=== PATIENT | female | born 1945 | race Caucasian/White ===

== ENCOUNTER 2018-04-29 14:33 | Inpatient (IN) ==
[2018-04-29] MEDS ORDERED: *HR* FentaNYL (PF) 100 MCG/2 ML VIAL IVP ONE (15:04)
[2018-04-29] MEDS ORDERED: Ondansetron 4 MG/2 ML VIAL IVP ONE ×2 (15:04→22:09)
[2018-04-29 15:09] LABS: Basophils % 0.2 %; Eosinophils % 0.1 %; Hematocrit 38.8 % (35.3-44.9); Hemoglobin 13.1 g/dL (11.5-15.4); Immature Granulocytes % 0.3 % (0-4); Lymphocytes # 1.2 K/mcL (0.6-4.6); Lymphocytes % 9.6 %; Mean Corpuscular HGB Conc 33.8 g/dL (31.6-35.5); Mean Corpuscular Hemoglobin 30.3 pg (28.0-33.3); Mean Corpuscular Volume 89.8 fL (83.0-100.0); Mean Platelet Volume 9.9 fL (9.4-12.4); Monocytes # 1.2 K/mcL (0.0-1.3); Neutrophils # 9.6 K/mcL (1.6-8.9); Platelet Count 158 K/mcL (140-400); Red Blood Count 4.32 M/mcL (3.82-4.97); Red Cell Distribution Width 13.7 % (11.5-14.5); Segmented Neutrophils % 79.8 %
[2018-04-29 15:28] LABS: Alanine Aminotransferase 16 Units/L (7-52); Albumin 3.6 g/dL (3.5-5.7); Alkaline Phosphatase 74 Units/L (34-104); Aspartate Amino Transferase 24 Units/L (13-39); BUN/Creatinine Ratio 17 (6-26); Bilirubin,Direct 0.8 mg/dL (0.0-0.2); Bilirubin,Indirect 1.5 mg/dL (0.0-1.2); Bilirubin,Total 2.3 mg/dL (0.3-1.0); Blood Urea Nitrogen 16 mg/dL (8-23); Calcium 9.4 mg/dL (8.6-10.3); Carbon Dioxide 27 mEq/L (23-29); Chloride 98 mEq/L (98-107); Globulin 3.6 g/dL (2.4-3.5); Glucose 115 mg/dL (70-105); Lipase 15 Units/L (11-82); Osmolality,Calculated 278 (280-300); Potassium 3.5 mEq/L (3.5-5.1); Sodium 133 mEq/L (136-145); Total Protein 7.2 g/dL (6.4-8.9); eGFR For African Americans > 60 (> 60); eGFR For Non-African Americans 60 (> 60)
--- NOTE | 2018-04-29 17:00 | Emergency Department Note ---
Disposition Clinical Impression: Right upper quadrant abdominal pain Cholelithiasis Qualifiers: Cholelithiasis location: gallbladder Cholecystitis acuity: acute Disposition: Admitted As Inpatient Condition: Good Referrals: Pablito Interiano MD [Primary Care Provider] - Time of Disposition: 17:01 Abdominal Pain HPI - General Chief Complaint: ED Abdominal Pain Stated Complaint: abd pain Time Seen by Provider: 04/29/18 14:39 Source: patient Mode of arrival: ambulatory Limitations: no limitations Nursing Notes Reviewed: Yes Vital Signs Reviewed: Yes - History of Present Illness HPI Narrative: 73-year-old female presents emergency room for right upper quadrant abdominal pain. Onset a few days ago. Was seen at an outlying emergency room over the weekend and had a CT scan done that showed concerns for gallstones. Pain got worse today. She came to our ER for evaluation. denies any fevers. States she has no appetite. Pain is isolated to the right upper quadrant. Pain Scale: 6 - Related Data Home Medications Medication Instructions Recorded Confirmed Albuterol Sulfate [Albuterol 2 puff IH Q4HR PRN 05/03/17 04/27/18 Inhaler] Budesonide/Formoterol 160/4.5 2 puff IH BIDR 05/03/17 04/27/18 [Symbicort 160/4.5] Buspirone HCl [Buspar] 15 mg PO BID 05/03/17 04/27/18 Calcium Carbonate/Vitamin D3 1 each PO DAILY 05/03/17 04/27/18 [Calcium 500 mg Chewable Tablet] Cholecalciferol (Vitamin D3) 5,000 unit PO DAILY 05/03/17 04/27/18 [Vitamin D] Losartan/Hydrochlorothiazide 1 each PO DAILY 05/03/17 04/27/18 [Hyzaar 100-25 Tablet] Omeprazole [PriLOSEC] 20 mg PO DAILY 05/03/17 04/27/18 Sertraline [Zoloft] 100 mg PO BID 05/03/17 04/27/18 Previous Rx's Medication Instructions Recorded Oxycodone HCl/Acetaminophen 1 each PO Q4HR 3 Days #15 tablet 04/27/18 [Percocet 5-325 mg Tablet] Allergies Allergy/AdvReac Type Severity Reaction Status Date / Time No Known Allergies Allergy Verified 04/29/18 14:37 Review of Systems: Gen.: No fevers or chills or new weakness Eyes: Denies double vision or any vision changes Ears: Denies any otalgia Pharynx: Denies sore throat CV: Denies chest pain. Denies palpitations Respiratory: Denies any cough or sputum production. No shortness of breath. GI: Positive for nausea and abdominal pain Neuro: Denies any headache. No problems with ambulation. No numbness. Skin: Denies any rashes or abrasions Psych: Denies any depression or suicidal or homicidal ideation Musculoskeletal: Denies any arthralgias or myalgias Abdominal Pain PMH - Past Medical History Medical history: Reports: asthma, coronary artery disease, hypertension Female Surgical History: Reports: appendectomy, hysterectomy Psychiatric history: Reports: anxiety, depression, panic disorder - Social History Smoking status: Former smoker Alcohol use: Reports: none Drug use: Reports: none Physical Exam - General Limitations: no limitations General appearance: alert - Head Head exam: atraumatic, normocephalic - Eye Eye exam: Present: normal appearance - Chest Chest inspection: Present: normal inspection, symmetric chest wall rise - Respiratory Respiratory exam: Present: normal lung sounds bilaterally - Cardiovascular Cardiovascular exam: Present: regular rate, normal rhythm, normal heart sounds - Abdominal Exam Abdominal exam: Present: tenderness (Tenderness to the right upper quadrant. Positive guarding.), Santos's sign - Extremities Exam Extremities exam: Present: normal inspection - Expanded Lower Extremity Exam Hip/Pelvis exam: Present: normal inspection - Back Exam Back exam: Present: normal inspection - Neurological Exam Neurological exam: Present: alert, oriented X3 - Psychiatric Psychiatric exam: Present: normal affect, normal mood - Skin Skin exam: Present: warm, dry, intact Course Vital Signs Temperature 100.6 F H 04/29/18 14:35 Pulse Rate 81 04/29/18 14:35 Respiratory Rate 18 04/29/18 14:35 Blood Pressure 150/70 04/29/18 14:35 O2 Sat by Pulse Oximetry 90 04/29/18 14:35 Temperature 100.6 F H 04/29/18 14:44 Pulse Rate 73 04/29/18 16:30 Respiratory Rate 18 04/29/18 16:30 Blood Pressure 109/86 04/29/18 16:30 O2 Sat by Pulse Oximetry 90 04/29/18 16:30 Oxygen Delivery Oxygen Delivery Room Air Abdominal Pain - Medical Records Medical records reviewed: Yes I reviewed the patient's medical records. - Lab Data Lab results reviewed: Yes I reviewed the patient's lab results. Result diagrams: 04/29/18 14:44 04/29/18 14:44 Lab Results 04/29/18 04/29/18 Range/Units 14:44 14:44 WBC 12.0 H D (4.3-11.1) K/mcL RBC 4.32 (3.82-4.97) M/mcL Hgb 13.1 (11.5-15.4) g/dL Hct 38.8 (35.3-44.9) % MCV 89.8 (83.0-100.0) fL MCH 30.3 (28.0-33.3) pg MCHC 33.8 (31.6-35.5) g/dL RDW 13.7 (11.5-14.5) % Plt Count 158 (140-400) K/mcL MPV 9.9 (9.4-12.4) fL Immature Gran % 0.3 (0-4) % Seg Neutrophils % 79.8 % Lymphocytes % 9.6 % Monocytes % 10.0 % Eosinophils % 0.1 % Basophils % 0.2 % Neutrophils # 9.6 H (1.6-8.9) K/mcL Lymphocytes # 1.2 (0.6-4.6) K/mcL Monocytes # 1.2 (0.0-1.3) K/mcL Eosinophils # 0.0 (0.0-0.6) K/mcL Basophils # 0.0 (0.0-0.2) K/mcL Sodium 133 L (136-145) mEq/L Potassium 3.5 (3.5-5.1) mEq/L Chloride 98 (98-107) mEq/L Carbon Dioxide 27 (23-29) mEq/L BUN 16 (8-23) mg/dL Creatinine 0.92 (0.60-1.20) mg/dL Est GFR ( Amer) > 60 (> 60) Est GFR (Non-Af Amer) 60 (> 60) BUN/Creatinine Ratio 17 (6-26) Glucose 115 H (70-105) mg/dL Calculated Osmolality 278 L (280-300) Calcium 9.4 (8.6-10.3) mg/dL Total Bilirubin 2.3 H (0.3-1.0) mg/dL Direct Bilirubin 0.8 H (0.0-0.2) mg/dL Indirect Bilirubin 1.5 H (0.0-1.2) mg/dL AST 24 (13-39) Units/L ALT 16 (7-52) Units/L Alkaline Phosphatase 74 (34-104) Units/L Serum Total Protein 7.2 (6.4-8.9) g/dL Albumin 3.6 (3.5-5.7) g/dL Globulin 3.6 H (2.4-3.5) g/dL Albumin/Globulin Ratio 1.0 L (1.1-2.2) Lipase 15 (11-82) Units/L - Radiology Data Radiology results reviewed: Yes I reviewed the patient's radiology results.
[2018-04-29] MEDS ORDERED: cefOXitin 2,000 MG in Water for inj. (sterile) 20 ML 20 ML IVP ONE (17:03)
--- NOTE | 2018-04-29 17:09 | General Surg History&Physical ---
<Joseph Ngo R - Last Filed: 04/29/18 17:04> Date of Encounter: 04/29/18 Time of Encounter: 17:04 Assessment and Plan (1) Acute cholecystitis Current Visit: Yes Status: Acute The assessment and plan as outlined above was discussed with the patient and/or family members who expressed understanding and agreement. All questions were answered. Imaging with cholelithiasis Labs show mild leukocytosis. Fever of 100.6. Worsening pain. PLAN: NPO Pain and nausea control Mefoxin 2 g IV Proceed with laparoscopic cholecystectomy - risks and benefits discussed, signed consent completed History of Present Illness Chief complaint: Abdominal Pain HPI: Ms. Chun is a 73 year old female with PMH of HTN and COPD (no home O2), PSH of hysterectomy and appendectomy, presented to [facility] with RUQ pain radiating to her back that began a few days ago. Recent CT showed gallstones. Pain is worsening today. Denies having an appetite. Denies fevers, N/V, or changes in bowels. RUQ ultrasound shows wall thickening, positive sonographic Santos's, gallbladder sludge, and mild distention. Report mentions a CT with possible stone in gallbladder neck. Past Med Surg Social Fam HX - Past Medical History Medical history: asthma, coronary artery disease, hypertension Psychiatric history: anxiety, depression, panic disorder - Past Surgical History Surgical History: appendectomy, hysterectomy - Social History Smoking Status: Former smoker Smokeless Tobacco Status: No Alcohol use: none Drug use: none Medications and Allergies Albuterol Sulfate [Albuterol Inhaler] 2 puff IH Q4HR PRN 05/03/17 [History] Budesonide/Formoterol 160/4.5 [Symbicort 160/4.5] 2 puff IH BIDR 05/03/17 [ History] Buspirone HCl [Buspar] 15 mg PO BID 05/03/17 [History] Calcium Carbonate/Vitamin D3 [Calcium 500 mg Chewable Tablet] 1 each PO DAILY [History] Cholecalciferol (Vitamin D3) [Vitamin D] 5,000 unit PO DAILY 05/03/17 [History] Losartan/Hydrochlorothiazide [Hyzaar 100-25 Tablet] 1 each PO DAILY 05/03/17 [ History] Omeprazole [PriLOSEC] 20 mg PO DAILY 05/03/17 [History] Sertraline [Zoloft] 100 mg PO BID 05/03/17 [History] Oxycodone HCl/Acetaminophen [Percocet 5-325 mg Tablet] 1 each PO Q4HR 3 Days # 15 tablet 04/27/18 [Rx] Indomethacin [Indomethacin] 75 mg PO DAILY 04/29/18 [History] Tiotropium [Spiriva] 1 puff IH DAILY 04/29/18 [History] 3 Allergy/AdvReac Type Severity Reaction Status Date / Time No Known Allergies Allergy Verified 04/29/18 14:37 Review of Systems All systems PM: reviewed and no additional remarkable complaints except as stated All systems PM: The remainder of the systems were reviewed and are negative General Surgery Exam Initial Vital Signs Temp Pulse Resp BP Pulse Ox 100.6 F H 81 18 150/70 90 04/29/18 14:35 04/29/18 14:35 04/29/18 14:35 04/29/18 14:35 04/29/18 14:35 - General physical appearance well developed, well nourished, moderate distress - Respiratory normal expansion, normal respiratory effort, clear to auscultation - Cardiovascular Cardiovascular exam: Present: RRR, no murmurs/rubs/gallops - Abdomen Abdomen general surgery: Present: tender (RUQ, positive Santos's sign), guarding - Integumentary Integumentary general surgery: Present: warm and dry, no abnormal pigmentation - Neurologic Present: CN 2-12 grossly intact, normal coordination - Psychiatric Psychiatric general surgery: Present: A&Ox3, appropriate, speech is normal, memory intact Results - Labs 04/29/18 14:44 04/29/18 14:44 Abnormal lab results WBC 12.0 K/mcL (4.3-11.1) H D 04/29/18 14:44 Neutrophils # 9.6 K/mcL (1.6-8.9) H 04/29/18 14:44 Sodium 133 mEq/L (136-145) L 04/29/18 14:44 Glucose 115 mg/dL (70-105) H 04/29/18 14:44 Calculated Osmolality 278 (280-300) L 04/29/18 14:44 Total Bilirubin 2.3 mg/dL (0.3-1.0) H 04/29/18 14:44 Direct Bilirubin 0.8 mg/dL (0.0-0.2) H 04/29/18 14:44 Indirect Bilirubin 1.5 mg/dL (0.0-1.2) H 04/29/18 14:44 Globulin 3.6 g/dL (2.4-3.5) H 04/29/18 14:44 Albumin/Globulin Ratio 1.0 (1.1-2.2) L 04/29/18 14:44 Diabetes panel 04/29/18 Range/Units 14:44 Sodium 133 L (136-145) mEq/L Potassium 3.5 (3.5-5.1) mEq/L Chloride 98 (98-107) mEq/L Carbon Dioxide 27 (23-29) mEq/L BUN 16 (8-23) mg/dL Creatinine 0.92 (0.60-1.20) mg/dL Glucose 115 H (70-105) mg/dL Calcium 9.4 (8.6-10.3) mg/dL AST 24 (13-39) Units/L ALT 16 (7-52) Units/L Alkaline Phosphatase 74 (34-104) Units/L Albumin 3.6 (3.5-5.7) g/dL Calcium panel 04/29/18 Range/Units 14:44 Calcium 9.4 (8.6-10.3) mg/dL Albumin 3.6 (3.5-5.7) g/dL Pituitary panel 04/29/18 Range/Units 14:44 Sodium 133 L (136-145) mEq/L Potassium 3.5 (3.5-5.1) mEq/L Chloride 98 (98-107) mEq/L Carbon Dioxide 27 (23-29) mEq/L BUN 16 (8-23) mg/dL Creatinine 0.92 (0.60-1.20) mg/dL Glucose 115 H (70-105) mg/dL Calcium 9.4 (8.6-10.3) mg/dL Adrenal panel 04/29/18 Range/Units 14:44 Sodium 133 L (136-145) mEq/L Potassium 3.5 (3.5-5.1) mEq/L Chloride 98 (98-107) mEq/L Carbon Dioxide 27 (23-29) mEq/L BUN 16 (8-23) mg/dL Creatinine 0.92 (0.60-1.20) mg/dL Glucose 115 H (70-105) mg/dL Calcium 9.4 (8.6-10.3) mg/dL Total Bilirubin 2.3 H (0.3-1.0) mg/dL AST 24 (13-39) Units/L ALT 16 (7-52) Units/L Alkaline Phosphatase 74 (34-104) Units/L Albumin 3.6 (3.5-5.7) g/dL All other labs normal. <Makayla,Jordan T - Last Filed: 04/29/18 20:19> Date of Encounter: 04/29/18 History of Present Illness HPI: Ms. Chun is a 73 year old female Review of Systems All systems PM: The remainder of the systems were reviewed and are negative General Surgery Exam Initial Vital Signs Temp Pulse Resp BP Pulse Ox 100.6 F H 81 18 150/70 90 04/29/18 14:35 04/29/18 14:35 04/29/18 14:35 04/29/18 14:35 04/29/18 14:35 Results - Labs 04/29/18 14:44 04/29/18 14:44 Abnormal lab results WBC 12.0 K/mcL (4.3-11.1) H D 04/29/18 14:44 Neutrophils # 9.6 K/mcL (1.6-8.9) H 04/29/18 14:44 Sodium 133 mEq/L (136-145) L 04/29/18 14:44 Glucose 115 mg/dL (70-105) H 04/29/18 14:44 Calculated Osmolality 278 (280-300) L 04/29/18 14:44 Total Bilirubin 2.3 mg/dL (0.3-1.0) H 04/29/18 14:44 Direct Bilirubin 0.8 mg/dL (0.0-0.2) H 04/29/18 14:44 Indirect Bilirubin 1.5 mg/dL (0.0-1.2) H 04/29/18 14:44 Globulin 3.6 g/dL (2.4-3.5) H 04/29/18 14:44 Albumin/Globulin Ratio 1.0 (1.1-2.2) L 04/29/18 14:44 All other labs normal. - Attending Attestation I examined this patient and my medical decision-making was reviewed with the Resident Physician. I agree with the documented findings, disposition and treatment plan as described except to the extent set forth below. The patient is seen and evaluated in the emergency room with resident. Radiologic findings and physical examination suggestive obstructed gallbladder with recalcitrant biliary colic. I recommended urgent laparoscopic cholecystectomy and cholangiogram. The patient is in agreement and we will proceed later this evening with cholecystectomy Jordan Benavides MD FACS
[2018-04-29] MEDS ORDERED: Acetaminophen IV 1,000 MG/100 ML INFUS..BTL IVPB PRN (18:45)
[2018-04-29] MEDS ORDERED: Ondansetron 4 MG/2 ML VIAL IVP PRN ×2 (18:47→23:58)
[2018-04-29] MEDS ORDERED: OXYCODONE Oral CONC 10 MG/0.5 ML ORAL.SYG SL PRN ×2 (18:48→23:58)
--- NOTE | 2018-04-29 18:58 | Anesthesia Evaluation PreOp ---
Date of Encounter: 04/29/18 Time of Encounter: 18:55 - Past History Planned Operation: Lap Marie. Cardiac History: HTN, Other (CAD) Pulmonary History: Asthma, COPD, Other (Anxiety/ Depression) WHOLESALER History: Denies Any Significant HX Other Medical History: Denies Any Significant HX Anesthesia History: No Prior Anesthetic Complications, Past Anesthesia ( appendectomy, hysterectomy) : No Alcohol Use: none Drug use: none Medications and Allergies Albuterol Sulfate [Albuterol Inhaler] 2 puff IH Q4HR PRN 05/03/17 [History] Budesonide/Formoterol 160/4.5 [Symbicort 160/4.5] 2 puff IH BIDR 05/03/17 [ History] Buspirone HCl [Buspar] 15 mg PO BID 05/03/17 [History] Calcium Carbonate/Vitamin D3 [Calcium 500 mg Chewable Tablet] 1 each PO DAILY [History] Cholecalciferol (Vitamin D3) [Vitamin D] 5,000 unit PO DAILY 05/03/17 [History] Losartan/Hydrochlorothiazide [Hyzaar 100-25 Tablet] 1 each PO DAILY 05/03/17 [ History] Omeprazole [PriLOSEC] 20 mg PO DAILY 05/03/17 [History] Sertraline [Zoloft] 100 mg PO BID 05/03/17 [History] Oxycodone HCl/Acetaminophen [Percocet 5-325 mg Tablet] 1 each PO Q4HR 3 Days # 15 tablet 04/27/18 [Rx] Indomethacin [Indomethacin] 75 mg PO DAILY 04/29/18 [History] Tiotropium [Spiriva] 1 puff IH DAILY 04/29/18 [History] 3 Allergy/AdvReac Type Severity Reaction Status Date / Time No Known Allergies Allergy Verified 04/29/18 14:37 - Meds/Allergy Pre-op Review Medications Reviewed: Yes Allergies Reviewed: Yes Beta Blockers on Current Med List: No Anesthesia Results - Labs 04/29/18 14:44 04/29/18 14:44 - Imaging EKG: report reviewed (SINUS RHYTHM WITH FIRST DEGREE AV BLOCK) Anesthesia Exam O2 Sat Height 1.7 m Height 1.7 m Height 1.7 m Weight 132.721 kg Weight 132.449 kg Weight 132.449 kg O2 Sat by Pulse Oximetry 98 O2 Sat by Pulse Oximetry 90 O2 Sat by Pulse Oximetry 90 O2 Sat by Pulse Oximetry 90 O2 Sat by Pulse Oximetry 90 Vital Signs Temp Pulse Resp BP Pulse Ox 100.6 F H 81 18 150/70 90 04/29/18 14:35 04/29/18 14:35 04/29/18 14:35 04/29/18 14:35 04/29/18 14:35 Vital Signs/O2 Sat, Most Current Temp Pulse Resp BP Pulse Ox 102.0 F H 77 15 145/71 98 04/29/18 17:41 04/29/18 17:41 04/29/18 17:41 04/29/18 17:41 04/29/18 17:41 NPO (# of Hours): > 8 hrs Pain Scale: 0 Pain Scale Used: Numeric (1 - 10) - HEENT Pupil (Motor): Pupils equal, EOMI Mallampati: III Teeth: Edentulous Oral Opening: Greater than 3 - WHOLESALER LOC: Oriented WHOLESALER Motor: Normal RUE, Normal LUE, Normal RLE, Normal LLE, Normal Face WHOLESALER Sensory: Normal: RUE, LUE, RLE, LLE, Face - Cardiac Rhythm: Regular Murmur: None JVD: No Carotid Bruit: No - Pulmonary Breath Sounds: bilateral Clear Respiratory Effort: Symmetrical Anesthesia Assess/Plan ASA Score: 3 Modified Keyes Scale for Level of Consciousness: Cooperative, oriented, and tranquil Anesthetic Plan: General Autologous Blood: Yes Monitoring Plan: Standard Monitors Recovery Plan: PACU
[2018-04-29] MEDS ORDERED: *HR* FentaNYL (PF) 100 MCG/2 ML VIAL ONE (19:19)
[2018-04-29] MEDS ORDERED: *HR* Midazolam HCl 2 MG/2 ML VIAL ONE (19:19)
[2018-04-29] MEDS ORDERED: *HR* Propofol 200 MG/20 ML VIAL IVP ONE (19:20)
[2018-04-29] MEDS ORDERED: Lidocaine -MPF 2% 2 ML VIAL ONE (19:22)
[2018-04-29] MEDS ORDERED: *HR* Succinylcholine 200 MG/10 ML VIAL IVP ONE (19:22)
[2018-04-29] MEDS ORDERED: Dexamethasone 4 MG/ML VIAL ONE (19:22)
[2018-04-29] MEDS ORDERED: *HR* Rocuronium Bromide 50 MG/5 ML VIAL ONE (19:22)
[2018-04-29] MEDS ORDERED: CefOXitin 1,000 MG VIAL ONE (19:24)
[2018-04-29] MEDS ORDERED: CefOXitin 2,000 MG VIAL ONE ×2 (19:42→21:33)
[2018-04-29] MEDS ORDERED: Neostigmine Methylsulfate 3 MG/3 ML SYRINGE ONE (19:59)
[2018-04-29] MEDS ORDERED: Naloxone 0.4 MG/ML INJ ONE (20:18)
[2018-04-29] MEDS ORDERED: Isovue-300 50 ML VIAL IVP ONE (20:28)
[2018-04-29] MEDS ORDERED: Albuterol 2.5 MG/3 ML NEBULIZER IH ONE (22:09)
[2018-04-29] MEDS ORDERED: *HR* Promethazine 25 MG/ML VIAL IVP PRN (22:09)
[2018-04-29] MEDS ORDERED: *HR* Labetalol 20 MG/4 ML SYRINGE IVP PRN (22:09)
[2018-04-29] MEDS ORDERED: *HR* HYDROmorphone (PF) 1 MG/ML SYRINGE IVP PRN (22:09)
--- NOTE | 2018-04-29 22:23 | Operative Note ---
Date of procedure: 04/29/18 Pre-op diagnosis: Acute cholecystitis Post-op diagnosis: same Procedure: Laparoscopic cholecystectomy, cholangiogram +30% (morbid obesity and acute cholecystitis) Anesthesia: SEYMOUR Surgeon: Jordan Benavides Was there an assistant community director present: Yes Building Tech: Marta Donovan Estimated blood loss (cc): 100 Specimen: Gallbladder and contents Condition: stable Disposition: PACU Procedure in Detail: Laparoscopic cholecystectomy and intraoperative cholangiogram (+30% for profound morbid obesity and acute cholecystitis) Operative procedure after informed consent and appropriate patient identification and timeout the patient was taken to the major operating suite and placed supine position given adequate general endotracheal anesthesia the abdomen is prepped and draped in sterile fashion utilizing ChloraPrep standard draping techniques timeout was taken patient is identified. I made a vertical midline incision below the umbilicus dissected down to level of fascia there are 2 traction stitches placed in the abdominal cavity was entered visually. A Garcia trocar was placed in the abdomen and the abdomen was insufflated to 15 mmHg pressure CO2 the gallbladder was visualized. The gallbladder was acutely inflamed and completely obstructed. I placed an 11 port in the subxiphoid area and 2 5 mm ports in the subcostal area. The gallbladder was decompressed with decompression needle. The gallbladder was grasped and elevated. A variety of blunt and sharp dissection techniques were used to isolate the cystic duct and cystic artery. The cystic artery was encountered first and divided prior to the cystic duct. The cystic artery was controlled with 2 surgical clips proximally and one distally and it was divided I placed a surgical clip on the neck the gallbladder and obtained an intraoperative cholangiogram using 10 mL of Isovue. Intraoperative cholangiogram was normal. The cholangiocatheter was removed and the cystic duct was controlled with 2 surgical clips proximally and was divided the gallbladder was removed from the gallbladder fossae using electrocautery. Dissection was very difficult and total blood loss was approximately 100 mL. At the end of the procedure I was able to completely control bleeding from the gallbladder fossa with electrocautery. The gallbladder was removed through the #11 port site using a specimen bag. I replaced the #11 port and irrigated with copious amounts of antibiotic containing solution. There is no evidence of bleeding or bile leak. All trochars were removed. Fascia was closed with 0 Vicryl skin with 20 and 4 -0 Vicryl he tolerated the procedure well and was transferred to recovery in stable condition
[2018-04-29] MEDS ORDERED: Acetaminophen IV 1,000 MG/100 ML INFUS..BTL IVPB ONE (23:09)
[2018-04-29] MEDS ORDERED: Acetaminophen IV 1,000 MG/100 ML INFUS..BTL ONE (23:10)
[2018-04-29] MEDS ORDERED: *HR* Metoprolol 5 MG/5 ML VIAL IVP PRN (23:58)
[2018-04-30] MEDS ORDERED: cefOXitin 2,000 MG in Water for inj. (sterile) 20 ML 20 ML IVPB SCH
[2018-04-30] MEDS: 0.9 % Sodium Chloride 1,000 ML IVC SCH ×2 (00:57→17:19)
[2018-04-30] MEDS: cefOXitin 2,000 MG in Water for inj. (sterile) 20 ML 20 ML IVPB SCH ×3 (04:50→21:37)
[2018-04-30] MEDS: *HR* OxyCODONE/APAP 5/325 TABLET PO PRN ×2 (05:07→11:44)
[2018-04-30 06:45] LABS: Basophils % 0.1 %; Hematocrit 39.7 % (35.3-44.9); Hemoglobin 13.1 g/dL (11.5-15.4); Immature Granulocytes % 0.5 % (0-4); Lymphocytes # 0.7 K/mcL (0.6-4.6); Lymphocytes % 6.6 %; Mean Corpuscular Hemoglobin 29.8 pg (28.0-33.3); Mean Corpuscular Volume 90.4 fL (83.0-100.0); Mean Platelet Volume 10.4 fL (9.4-12.4); Monocytes # 0.9 K/mcL (0.0-1.3); Monocytes % 8.8 %; Neutrophils # 8.6 K/mcL (1.6-8.9); Platelet Count 150 K/mcL (140-400); Red Blood Count 4.39 M/mcL (3.82-4.97); Red Cell Distribution Width 13.7 % (11.5-14.5)
[2018-04-30 07:05] LABS: BUN/Creatinine Ratio 17 (6-26); Blood Urea Nitrogen 17 mg/dL (8-23); Calcium 9.1 mg/dL (8.6-10.3); Carbon Dioxide 26 mEq/L (23-29); Chloride 100 mEq/L (98-107); Glucose 123 mg/dL (70-105); Osmolality,Calculated 285 (280-300); Potassium 3.8 mEq/L (3.5-5.1); Sodium 136 mEq/L (136-145); eGFR For African Americans > 60 (> 60); eGFR For Non-African Americans 56 (> 60)
--- NOTE | 2018-04-30 09:09 | Neurology - Consult Note ---
<Eliseo David - Last Filed: 04/30/18 13:27> Date of Encounter: 04/30/18 Time of Encounter: 10:30 Assessment and Plan (1) Mild cognitive impairment with memory loss Current Visit: Yes Status: Acute Patient having difficulty answering questions, patient gets distracted having difficulty with congition and orientation. Likely a combination of factors: probable Underlying cognitive impairment exacerbated by her acute medical issues. CT head showed: "No acute intracranial abnormality. Chronic white matter microangiopathic ischemic changes and age-related cerebral atrophy." Recommendation: Check TSH, B12, Folate, UA to rule out medical causes of altered mental status. Follow up as an outpatient for full neuropsych testing evaluation for Mild cognitive impairment. History of Present Illness HPI: Ms. Chun is a 73 year old female Past Med Surg Social Fam HX - Past Medical History Medical history: asthma, coronary artery disease, hypertension Psychiatric history: anxiety, depression, panic disorder - Past Surgical History Surgical History: appendectomy, hysterectomy - Social History Smoking Status: Former smoker Smokeless Tobacco Status: No Alcohol use: none Drug use: none Medications and Allergies Albuterol Sulfate [Albuterol Inhaler] 2 puff IH Q4HR PRN 05/03/17 [History] Budesonide/Formoterol 160/4.5 [Symbicort 160/4.5] 2 puff IH BIDR 05/03/17 [ History] Buspirone HCl [Buspar] 15 mg PO BID 05/03/17 [History] Calcium Carbonate/Vitamin D3 [Calcium 500 mg Chewable Tablet] 1 each PO DAILY [History] Cholecalciferol (Vitamin D3) [Vitamin D] 5,000 unit PO DAILY 05/03/17 [History] Losartan/Hydrochlorothiazide [Hyzaar 100-25 Tablet] 1 each PO DAILY 05/03/17 [ History] Omeprazole [PriLOSEC] 20 mg PO DAILY 05/03/17 [History] Sertraline [Zoloft] 100 mg PO BID 05/03/17 [History] Oxycodone HCl/Acetaminophen [Percocet 5-325 mg Tablet] 1 each PO Q4HR 3 Days # 15 tablet 04/27/18 [Rx] Indomethacin [Indomethacin] 75 mg PO DAILY 04/29/18 [History] Tiotropium [Spiriva] 1 puff IH DAILY 04/29/18 [History] 3 Allergy/AdvReac Type Severity Reaction Status Date / Time No Known Allergies Allergy Verified 04/29/18 14:37 All Systems: The remainder of the systems were reviewed and are negative Physical Examination - Vital Signs Vital Signs: Initial Vital Signs Temp Pulse Resp BP Pulse Ox 100.6 F H 81 18 150/70 90 04/29/18 14:35 04/29/18 14:35 04/29/18 14:35 04/29/18 14:35 04/29/18 14:35 - Constitutional General appearance: comfortable - Neurologic Sensorimotor examination: intact Motor examination - right side: 03/16: deltoids, biceps, triceps, wrist flexion, wrist extension, 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, hip flexors, tibialis Anterior, toe extension (EHL), plantarflexion Motor examination - left side: 03/16: deltoids, biceps, triceps, wrist flexion, wrist extension, hip flexors, 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 I said that I had asked her what year it was and she answered 2017 then changed to 2018. When I asked her the month she correctly stated April because my birthday is in April. She was able to tell me her birthday immediately. When asked the Date she paused for a while and then stated she did not know because she didn't have a calander with her. I indicated the date was posted on the board opposite her and asked her to read it. She read sunday as but then corrected herself, but didn't finish readign the month, date, and year also listed. She took a long time to answer where we were but eventually stated she was in the hospital. She is able to spell the word world forwards, but not backwards, she was unable to tell me how much money 5 quarters added up to, She was able to tell me her 's name and the date she got , but not the year. ), lucid, follows simple commands (sometimes requires prompting. Patient will often struggle with questions/commands appear to spend lots of time thinking about it but then et lost in thoguth and forget what we were talking about or what I asked her to do. Often when I asked her a question she would say mhmm even though that was not an appropriate answer to my question.), cognitive impairment, not reliable historian Cranial nerve examination: PERRL, EOMI, visual kelsey intact, sensory to face intact, no facial asymmetry is present, no dysarthria, hearing is intact symmetrically, soft palate elevates bilaterally upon phonation, flexes SCM and trapezius muscles symmetrically with full power, tongue protrudes midline, no atrophy or facial fasiculations present Cerebellar examination: no dysmetria, performs finger to nose and heel to berry symmetrically without ataxia Results - Laboratory Findings CBC and BMP: 04/30/18 05:26 04/30/18 05:26 Abnormal lab findings: Abnormal lab results Est GFR (Non-Af Amer) 56 (> 60) L 04/30/18 05:26 Glucose 123 mg/dL (70-105) H 04/30/18 05:26 Total Bilirubin 2.3 mg/dL (0.3-1.0) H 04/29/18 14:44 Direct Bilirubin 0.8 mg/dL (0.0-0.2) H 04/29/18 14:44 Indirect Bilirubin 1.5 mg/dL (0.0-1.2) H 04/29/18 14:44 Globulin 3.6 g/dL (2.4-3.5) H 04/29/18 14:44 Albumin/Globulin Ratio 1.0 (1.1-2.2) L 04/29/18 14:44 Consult Discharge Plan - Plan Referrals: Pablito Interiano MD [Primary Care Provider] - <Estella Espino I - Last Filed: 04/30/18 15:27> Date of Encounter: 04/30/18 Assessment and Plan (1) Mild cognitive impairment with memory loss Current Visit: Yes Status: Acute Pt was seen and examined, my medical decision was reviewed with the Resident Physician, I agree with the documented findings, disposition and treatment plas as described except to the extent set forth below Patient seemed to be having some difficulty with orientation and cognition though no significant focal motor deficit noted on examination CT also did not shows any acute abnormality. Suggest to check for any underlying metabolic or infectious etiologies that may be causing or contributing to her symptoms. Patient may have underlying mild cognitive impairment likely exacerbated by the acute condition. If no sign of infection or any other metabolic abnormalities she could be evaluated later on as an outpatient for evaluation of the dementia. In the meantime continue to treat underlying condition which she is been admitted for. Estella Espino MD History of Present Illness HPI: Ms. Chun is a 73 year old female All Systems: The remainder of the systems were reviewed and are negative Physical Examination - Vital Signs Vital Signs: Initial Vital Signs Temp Pulse Resp BP Pulse Ox 100.6 F H 81 18 150/70 90 04/29/18 14:35 04/29/18 14:35 04/29/18 14:35 04/29/18 14:35 04/29/18 14:35 Results - Laboratory Findings CBC and BMP: 04/30/18 05:26 04/30/18 05:26 Abnormal lab findings: Abnormal lab results Est GFR (Non-Af Amer) 56 (> 60) L 04/30/18 05:26 Glucose 123 mg/dL (70-105) H 04/30/18 05:26 Total Bilirubin 2.3 mg/dL (0.3-1.0) H 04/29/18 14:44 Direct Bilirubin 0.8 mg/dL (0.0-0.2) H 04/29/18 14:44 Indirect Bilirubin 1.5 mg/dL (0.0-1.2) H 04/29/18 14:44 Globulin 3.6 g/dL (2.4-3.5) H 04/29/18 14:44 Albumin/Globulin Ratio 1.0 (1.1-2.2) L 04/29/18 14:44
[2018-04-30] MEDS: Losartan/HCTZ 50-12.5 TABLET PO SCH (09:15)
--- NOTE | 2018-04-30 11:24 | General Surgery Progress Note ---
<Joseph Ngo R - Last Filed: 04/30/18 16:34> Date of Encounter: 04/30/18 Time of Encounter: 07:00 - Assessment and Plan (1) Acute cholecystitis Current Visit: Yes Status: Acute POD #[address] Dr[address] Benavides No longer febrile. Leukocytosis is resolved now. PLAN: Clear liquid diet Pain and nausea control Continue antibiotics Consult neurology for suspected delirium (2) Disorientation Current Visit: Yes Status: Acute Possibly acute delirium related to infection, unsure of baseline mental status at this point CT head: no acute abnormality, chronic white matter microangiopathic ischemic changes and age-related cerebral atrophy Consult Neurology - appreciate recommendations - will check TSH, B12, folate, and UA (3) Hypertension Current Visit: Yes Status: Acute Normotensive. Continue home meds Qualifiers: Hypertension type: essential hypertension Qualified Code(s): I10 - Essential (primary) hypertension (4) Depression Current Visit: Yes Status: Acute Continue home meds Qualifiers: Depression Type: unspecified Qualified Code(s): F32.9 - Major depressive disorder, single episode, unspecified (5) COPD (chronic obstructive pulmonary disease) Current Visit: Yes Status: Acute Albuterol PRN Qualifiers: COPD type: unspecified COPD Qualified Code(s): J44.9 - Chronic obstructive pulmonary disease, unspecified (6) DVT prophylaxis Current Visit: Yes Status: Acute SCDs and heparin BID Subjective Narrative: Pt is confused this morning. States the year is 1999, but knows the president correctly. She reports being in some mild pain, but this is improving. Denies fevers, chills, N/V. No BM yet, but is passing gas. Objective Vital Signs - Last 8 Hours Temp Pulse Resp BP Pulse Ox 04/30/18 11:03 99.0 F 90 18 126/69 93 04/30/18 09:21 92 04/30/18 07:38 97.6 F 66 18 104/61 95 04/30/18 05:22 99.1 F 65 16 113/70 94 Intake and Output 04/29/18 04/30/18 04/30/18 23:59 07:59 15:59 Intake Total 100 / 100 480 / 480 Output Total 100 / 100 750 / 750 400 / 400 Balance -100 / -100 -650 / -650 80 / 80 Intake: IV Fluids 100 / 100 Ofirmev 1,000 mg/100 ml 1,000 100 / 100 mg In 100 ml @ 400 mls/hr IVPB ONCE ONE Rx#:[id number] Oral 0 / 0 480 / 480 Output: Urine 750 / 750 400 / 400 Estimated Blood Loss 100 / 100 Other: Meal Clears # Bowel Movements 0 Weight 132.721 kg 134.5 kg Blood Glucose* 96 Patient Weight 04/30/18 23:59 Weight 134.5 kg - General physical appearance well developed, well nourished, no distress - Respiratory normal expansion, normal respiratory effort, clear to auscultation - Cardiovascular Cardiovascular exam: Present: RRR, no murmurs/rubs/gallops - Abdomen Abdomen: Present: bowel sounds present, soft, tender (appropriately) - Incision Incision: Present: clean and dry, intact - Integumentary no rash, no growths, no abnormal pigmentation - Neurologic CN 2-12 grossly intact - Psychiatric oriented to person, speech is normal - Labs 04/30/18 05:26 04/30/18 05:26 Diabetes panel 04/30/18 Range/Units 05:26 Sodium 136 (136-145) mEq/L Potassium 3.8 (3.5-5.1) mEq/L Chloride 100 (98-107) mEq/L Carbon Dioxide 26 (23-29) mEq/L BUN 17 (8-23) mg/dL Creatinine 0.98 (0.60-1.20) mg/dL Glucose 123 H (70-105) mg/dL Calcium 9.1 (8.6-10.3) mg/dL Calcium panel 04/30/18 Range/Units 05:26 Calcium 9.1 (8.6-10.3) mg/dL Pituitary panel 04/30/18 Range/Units 05:26 Sodium 136 (136-145) mEq/L Potassium 3.8 (3.5-5.1) mEq/L Chloride 100 (98-107) mEq/L Carbon Dioxide 26 (23-29) mEq/L BUN 17 (8-23) mg/dL Creatinine 0.98 (0.60-1.20) mg/dL Glucose 123 H (70-105) mg/dL Calcium 9.1 (8.6-10.3) mg/dL Adrenal panel 04/30/18 Range/Units 05:26 Sodium 136 (136-145) mEq/L Potassium 3.8 (3.5-5.1) mEq/L Chloride 100 (98-107) mEq/L Carbon Dioxide 26 (23-29) mEq/L BUN 17 (8-23) mg/dL Creatinine 0.98 (0.60-1.20) mg/dL Glucose 123 H (70-105) mg/dL Calcium 9.1 (8.6-10.3) mg/dL - VTE Documentation of Mechanical Device: Intermittent pneumatic compression device Consult Discharge Plan - Plan Referrals: Pablito Interiano MD [Primary Care Provider] - <Jordan Benavides - Last Filed: 05/02/18 09:37> Date of Encounter: 04/30/18 Objective Vital Signs - Last 8 Hours Temp Pulse Resp BP Pulse Ox 05/02/18 06:24 99.6 F 95 18 103/51 95 05/02/18 04:27 16 93 05/02/18 03:47 98.8 F 91 18 105/57 94 Intake and Output 05/01/18 05/02/18 05/02/18 23:59 07:59 15:59 Intake Total 1140 / 1140 80 / 80 Output Total 600 / 600 300 / 300 Balance 540 / 540 -220 / -220 Intake: IV Fluids 1020 / 1020 20 / 20 0.9 % Sodium Chloride 1,000 ML 1000 / 1000 @ 75 mls/hr IVC .[id number] [facility] Rx #:[id number] Mefoxin 2,000 MG In Water for 20 / 20 20 / 20 inj. (sterile) 20 ML @ 300 mls/ hr IVPB Q8H [facility] Rx#:[id number] Oral 120 / 120 60 / 60 Output: Urine 600 / 600 300 / 300 Other: Meal Dinner Percent of Meal Consumed 50% # Bowel Movements 0 Weight 136.2 kg Patient Weight 05/02/18 23:59 Weight 136.2 kg - Labs 05/02/18 05:06 05/02/18 05:06 Diabetes panel 05/02/18 Range/Units 05:06 Sodium 137 (136-145) mEq/L Potassium 3.7 (3.5-5.1) mEq/L Chloride 106 (98-107) mEq/L Carbon Dioxide 26 (23-29) mEq/L BUN 28 H (8-23) mg/dL Creatinine 0.97 (0.60-1.20) mg/dL Glucose 100 (70-105) mg/dL Calcium 8.4 L (8.6-10.3) mg/dL Calcium panel 05/02/18 Range/Units 05:06 Calcium 8.4 L (8.6-10.3) mg/dL Pituitary panel 05/02/18 Range/Units 05:06 Sodium 137 (136-145) mEq/L Potassium 3.7 (3.5-5.1) mEq/L Chloride 106 (98-107) mEq/L Carbon Dioxide 26 (23-29) mEq/L BUN 28 H (8-23) mg/dL Creatinine 0.97 (0.60-1.20) mg/dL Glucose 100 (70-105) mg/dL Calcium 8.4 L (8.6-10.3) mg/dL Adrenal panel 05/02/18 Range/Units 05:06 Sodium 137 (136-145) mEq/L Potassium 3.7 (3.5-5.1) mEq/L Chloride 106 (98-107) mEq/L Carbon Dioxide 26 (23-29) mEq/L BUN 28 H (8-23) mg/dL Creatinine 0.97 (0.60-1.20) mg/dL Glucose 100 (70-105) mg/dL Calcium 8.4 L (8.6-10.3) mg/dL - Attending Attestation I examined this patient and my medical decision-making was reviewed with the Resident Physician. I agree with the documented findings, disposition and treatment plan as described except to the extent set forth below. The patient is seen and evaluated on morning rounds with resident. She has much more disorientation and expected. She is not responding well. This may be acute worsening of baseline dementia. We will plan CAT scan of the head and neurology consultation continue supportive care Jordan Benavides MD FACS
[2018-04-30] MEDS: *HR* Heparin 5,000 UNIT/ML VIAL SQ SCH ×2 (17:19→19:25)
[2018-04-30] MEDS ORDERED: 0.9 % Sodium Chloride 500 ML IVC ONE (20:57)
[2018-04-30] MEDS ORDERED: Acetaminophen 325 MG TABLET PO PRN (20:59)
[2018-05-01] MEDS: cefOXitin 2,000 MG in Water for inj. (sterile) 20 ML 20 ML IVPB SCH ×3 (05:21→20:52)
[2018-05-01] MEDS: *HR* Heparin 5,000 UNIT/ML VIAL SQ SCH ×2 (05:21→16:54)
[2018-05-01 06:29] LABS: Basophils % 0.4 %; Eosinophils # 0.1 K/mcL (0.0-0.6); Eosinophils % 0.9 %; Hematocrit 34.8 % (35.3-44.9); Immature Platelets 3.7 % (1.1-6.1); Lymphocytes # 1.3 K/mcL (0.6-4.6); Lymphocytes % 16.7 %; Mean Corpuscular HGB Conc 31.9 g/dL (31.6-35.5); Mean Corpuscular Hemoglobin 29.4 pg (28.0-33.3); Mean Corpuscular Volume 92.3 fL (83.0-100.0); Mean Platelet Volume 10.2 fL (9.4-12.4); Monocytes # 0.8 K/mcL (0.0-1.3); Monocytes % 9.9 %; Neutrophils # 5.7 K/mcL (1.6-8.9); Platelet Count 156 K/mcL (140-400); Red Blood Count 3.77 M/mcL (3.82-4.97); Red Cell Distribution Width 13.8 % (11.5-14.5); Segmented Neutrophils % 71.1 %
[2018-05-01 06:44] LABS: Hemoglobin 11.1 g/dL (11.5-15.4)
[2018-05-01 06:46] LABS: Calcium 8.5 mg/dL (8.6-10.3); Potassium 3.5 mEq/L (3.5-5.1)
[2018-05-01 06:52] LABS: Thyroid Stimulating Hormone 2.339 mcIU/mL (0.340-5.600)
[2018-05-01 07:03] LABS: Vitamin B12 263 pg/mL (250-1100)
[2018-05-01] MEDS: 0.9 % Sodium Chloride 1,000 ML IVC SCH ×3 (07:05→14:10)
[2018-05-01 07:10] LABS: Folate > 22.3 ng/mL (3.0-16.0)
[2018-05-01] MEDS ORDERED: 0.9 % Sodium Chloride 500 ML IVC ONE ×2 (07:30→14:00)
--- NOTE | 2018-05-01 07:37 | General Surgery Progress Note ---
<Joseph Ngo R - Last Filed: 05/01/18 07:32> Date of Encounter: 05/01/18 Time of Encounter: 07:32 - Assessment and Plan (1) Acute cholecystitis Current Visit: Yes Status: Acute POD #[address] Dr[address] Benavides Still with fever overnight. Leukocytosis is resolved now. PLAN: Clear liquid diet Pain and nausea control Continue antibiotics 500ml bolus x2 today Add douonebs scheduled Blood cultures pending UA pending DVT & GI prophylaxis PT/OT/SW consults (2) Disorientation Current Visit: Yes Status: Acute Possibly acute delirium related to infection, unsure of baseline mental status at this point CT head: no acute abnormality, chronic white matter microangiopathic ischemic changes and age-related cerebral atrophy Consult Neurology - appreciate recommendations - TSH, B12, folate all unremarkable - UA pending (3) Hypertension Current Visit: Yes Status: Acute Normotensive. Continue home meds Qualifiers: Hypertension type: essential hypertension Qualified Code(s): I10 - Essential (primary) hypertension (4) Depression Current Visit: Yes Status: Acute Continue home meds Qualifiers: Depression Type: unspecified Qualified Code(s): F32.9 - Major depressive disorder, single episode, unspecified (5) COPD (chronic obstructive pulmonary disease) Current Visit: Yes Status: Acute Duonebs scheduled Up to chair TID Qualifiers: COPD type: unspecified COPD Qualified Code(s): J44.9 - Chronic obstructive pulmonary disease, unspecified (6) DVT prophylaxis Current Visit: Yes Status: Acute SCDs and heparin BID Subjective Patient reports: still having pain, pain is less, bowel movement Narrative: Pt with fever overnight, blood cultures drawn. She is more oriented this morning and able to respond quicker than yesterday. Still having small amount of urine output. Objective Vital Signs - Last 8 Hours Temp Pulse Resp BP Pulse Ox 05/01/18 06:30 99.7 F H 93 16 122/69 93 05/01/18 04:58 18 93 05/01/18 04:29 99.7 F H 91 18 113/67 92 05/01/18 02:50 99.6 F 93 20 101/61 94 04/30/18 23:46 101.2 F H 85 16 93/56 95 Intake and Output 04/30/18 04/30/18 05/01/18 15:59 23:59 07:59 Intake Total 2100 / 2100 20 20 Output Total 400 / 400 0 / 0 0 / 0 Balance 1700 / 1700 20 Intake: IV Fluids 1020 / 1020 20 0.9 % Sodium Chloride 1,000 ML 1000 / 1000 @ 75 mls/hr IVC .[id number] [facility] Rx #:[id number] Mefoxin 2,000 MG In Water for 20 inj. (sterile) 20 ML @ 300 mls/ hr IVPB Q8H [facility] Rx#:[id number] Oral 1080 / 1080 0 / 0 0 / 0 Output: Urine 400 / 400 0 / 0 0 / 0 Other: Meal clears Percent of Meal Consumed 0% # Urine Diapers 1 # Bowel Movements 0 Weight 134.2 kg Patient Weight 05/01/18 23:59 Weight 134.2 kg - General physical appearance well developed, well nourished, no distress - Respiratory normal expansion wheezing: bilateral - Cardiovascular Cardiovascular exam: Present: RRR - Abdomen Abdomen: Present: bowel sounds present, soft, tender (appropriately) - Incision Incision: Present: clean and dry, intact - Integumentary no rash - Neurologic CN 2-12 grossly intact - Psychiatric oriented to person, oriented to place - Labs 05/01/18 05:58 05/01/18 05:58 Diabetes panel 05/01/18 Range/Units 05:58 Sodium 137 (136-145) mEq/L Potassium 3.5 (3.5-5.1) mEq/L Chloride 104 (98-107) mEq/L Carbon Dioxide 25 (23-29) mEq/L BUN 29 H (8-23) mg/dL Creatinine 1.22 H (0.60-1.20) mg/dL Glucose 97 (70-105) mg/dL Calcium 8.5 L (8.6-10.3) mg/dL Thyroid panel 05/01/18 Range/Units 05:58 TSH 2.339 (0.340-5.600) mcIU/mL Calcium panel 05/01/18 Range/Units 05:58 Calcium 8.5 L (8.6-10.3) mg/dL Pituitary panel 05/01/18 Range/Units 05:58 Sodium 137 (136-145) mEq/L Potassium 3.5 (3.5-5.1) mEq/L Chloride 104 (98-107) mEq/L Carbon Dioxide 25 (23-29) mEq/L BUN 29 H (8-23) mg/dL Creatinine 1.22 H (0.60-1.20) mg/dL Glucose 97 (70-105) mg/dL Calcium 8.5 L (8.6-10.3) mg/dL TSH 2.339 (0.340-5.600) mcIU/mL Adrenal panel 05/01/18 Range/Units 05:58 Sodium 137 (136-145) mEq/L Potassium 3.5 (3.5-5.1) mEq/L Chloride 104 (98-107) mEq/L Carbon Dioxide 25 (23-29) mEq/L BUN 29 H (8-23) mg/dL Creatinine 1.22 H (0.60-1.20) mg/dL Glucose 97 (70-105) mg/dL Calcium 8.5 L (8.6-10.3) mg/dL - VTE Documentation of Mechanical Device: Intermittent pneumatic compression device Consult Discharge Plan - Plan Referrals: Pablito Interiano MD [Primary Care Provider] - <Jordan Benavides - Last Filed: 05/02/18 09:39> Date of Encounter: 05/01/18 Time of Encounter: 07:30 Objective Vital Signs - Last 8 Hours Temp Pulse Resp BP Pulse Ox 05/02/18 06:24 99.6 F 95 18 103/51 95 05/02/18 04:27 16 93 05/02/18 03:47 98.8 F 91 18 105/57 94 Intake and Output 05/01/18 05/02/18 05/02/18 23:59 07:59 15:59 Intake Total 1140 / 1140 80 / 80 Output Total 600 / 600 300 / 300 Balance 540 / 540 -220 / -220 Intake: IV Fluids 1020 / 1020 0.9 % Sodium Chloride 1,000 ML 1000 / 1000 @ 75 mls/hr IVC .[id number] [facility] Rx #:[id number] Mefoxin 2,000 MG In Water for inj. (sterile) 20 ML @ 300 mls/ hr IVPB Q8H [facility] Rx#:[id number] Oral 120 / 120 60 / 60 Output: Urine 600 / 600 300 / 300 Other: Meal Dinner Percent of Meal Consumed 50% # Bowel Movements 0 Weight 136.2 kg Patient Weight 05/02/18 23:59 Weight 136.2 kg - Labs 05/02/18 05:06 05/02/18 05:06 Diabetes panel 05/02/18 Range/Units 05:06 Sodium 137 (136-145) mEq/L Potassium 3.7 (3.5-5.1) mEq/L Chloride 106 (98-107) mEq/L Carbon Dioxide 26 (23-29) mEq/L BUN 28 H (8-23) mg/dL Creatinine 0.97 (0.60-1.20) mg/dL Glucose 100 (70-105) mg/dL Calcium 8.4 L (8.6-10.3) mg/dL Calcium panel 05/02/18 Range/Units 05:06 Calcium 8.4 L (8.6-10.3) mg/dL Pituitary panel 05/02/18 Range/Units 05:06 Sodium 137 (136-145) mEq/L Potassium 3.7 (3.5-5.1) mEq/L Chloride 106 (98-107) mEq/L Carbon Dioxide 26 (23-29) mEq/L BUN 28 H (8-23) mg/dL Creatinine 0.97 (0.60-1.20) mg/dL Glucose 100 (70-105) mg/dL Calcium 8.4 L (8.6-10.3) mg/dL Adrenal panel 05/02/18 Range/Units 05:06 Sodium 137 (136-145) mEq/L Potassium 3.7 (3.5-5.1) mEq/L Chloride 106 (98-107) mEq/L Carbon Dioxide 26 (23-29) mEq/L BUN 28 H (8-23) mg/dL Creatinine 0.97 (0.60-1.20) mg/dL Glucose 100 (70-105) mg/dL Calcium 8.4 L (8.6-10.3) mg/dL - Attending Attestation I examined this patient and my medical decision-making was reviewed with the Resident Physician. I agree with the documented findings, disposition and treatment plan as described except to the extent set forth below. The patient is seen and evaluated on morning rounds with resident. She continues to have unexpected disorientation. I had a long conversation with the family. She has been having increased difficulties with memory at home. This is likely situational worsening of her baseline dementia. She continues to not respond to be clearly. We will try to get her up to a chair and provide supportive care as she recovers from surgery. She will require placement for further rehabilitation to try to get back to her baseline. Incisions are well- healed. Jordan Benavides MD FACS
[2018-05-01] MEDS: Losartan/HCTZ 50-12.5 TABLET PO SCH (08:54)
[2018-05-01] MEDS: Ipratropium/Albuterol Neb 3 ML IH SCH ×3 (10:59→21:57)
--- NOTE | 2018-05-01 11:23 | Neurology Progress Note ---
<Eliseo David - Last Filed: 05/01/18 11:20> Date of Encounter: 05/01/18 Time of Encounter: 10:30 Assessment and Plan (1) Mild cognitive impairment with memory loss Current Visit: Yes Status: Acute Patient having difficulty answering questions, patient gets distracted having difficulty with congition and orientation. Likely a combination of factors: probable Underlying cognitive impairment exacerbated by her acute medical issues. CT head showed: "No acute intracranial abnormality. Chronic white matter microangiopathic ischemic changes and age-related cerebral atrophy." TSH, B12, Folate unremarkable UA pending Recommendation: Patient still spiking fevers, obtain UA, maximize medical treatment, patient's mentation should improve once medical condition improves and she gets out of the hospital. Follow up as an outpatient for full neuropsych testing evaluation for Mild cognitive impairment. Subjective Principal diagnosis: Metabolic encephalopathy/mild cognitive impairment Interval history: No Change in patient's orientation or mental status. Patient continues to spike fevers over night. Patient reports pain is improved. Objective - Constitutional Vitals: Temp Pulse Resp BP Pulse Ox 98.0 F 57 16 97/59 97 05/01/18 11:05 05/01/18 11:05 05/01/18 11:05 05/01/18 11:05 05/01/18 11:05 - Neurological Exam Sensorimotor examination: Present: intact Motor Examination: Present: grossly full strength in all extremities, full strength in all major muscle groups Motor examination - right side: 5/5: deltoids, biceps, triceps, wrist flexion, wrist extension, die barber, hip flexors, tibialis Anterior, quadriceps, toe extension (EHL), plantarflexion Motor examination - left side: 5/5: deltoids, biceps, triceps, wrist flexion, wrist extension, hip flexors, die barber, tibialis Anterior, toe extension (EHL), plantarflexion Sensation intact: Present: intact, light touch Reflexes: Biceps: 2+ Mental Status Examination: Present: awake, alert, oriented to person (Patient slow to respond will close eyes and appear to be thinking about question but then forget what we were talking about. Patient unable to give a guess what year it was, but does know it's April. She knows her Birthdate and full name. She knows she's in the hospital. ), lucid, follows simple commands (sometimes requires prompting. Patient will often struggle with questions/commands appear to spend lots of time thinking about it but then et lost in thoguth and forget what we were talking about or what I asked her to do. Often when I asked her a question she would say mhmm even though that was not an appropriate answer to my question.), cognitive impairment, not reliable historian Cranial nerve examination: Present: PERRL, EOMI, visual kelsey intact, sensory to face intact, no facial asymmetry is present, no dysarthria, hearing is intact symmetrically, soft palate elevates bilaterally upon phonation, flexes SCM and trapezius muscles symmetrically with full power, tongue protrudes midline, no atrophy or facial fasiculations present Cerebellar examination: Present: no dysmetria, performs finger to nose and heel to berry symmetrically without ataxia - VTE Documentation of Mechanical Device: Intermittent pneumatic compression device Results - Laboratory Findings CBC and BMP: 05/01/18 05:58 05/01/18 05:58 Abnormal lab findings: Abnormal lab results RBC 3.77 M/mcL (3.82-4.97) L 05/01/18 05:58 Hgb 11.1 g/dL (11.5-15.4) L D 05/01/18 05:58 Hct 34.8 % (35.3-44.9) L 05/01/18 05:58 BUN 29 mg/dL (8-23) H 05/01/18 05:58 Creatinine 1.22 mg/dL (0.60-1.20) H 05/01/18 05:58 Est GFR ( Amer) 52 (> 60) L 05/01/18 05:58 Est GFR (Non-Af Amer) 43 (> 60) L 05/01/18 05:58 Calcium 8.5 mg/dL (8.6-10.3) L 05/01/18 05:58 Total Bilirubin 2.3 mg/dL (0.3-1.0) H 04/29/18 14:44 Direct Bilirubin 0.8 mg/dL (0.0-0.2) H 04/29/18 14:44 Indirect Bilirubin 1.5 mg/dL (0.0-1.2) H 04/29/18 14:44 Globulin 3.6 g/dL (2.4-3.5) H 04/29/18 14:44 Albumin/Globulin Ratio 1.0 (1.1-2.2) L 04/29/18 14:44 Folate > 22.3 ng/mL (3.0-16.0) H 05/01/18 05:58 Consult Discharge Plan - Plan Referrals: Pablito Interiano MD [Primary Care Provider] - <Estella Espino I - Last Filed: 05/01/18 13:33> Date of Encounter: 05/01/18 Assessment and Plan (1) Mild cognitive impairment with memory loss Current Visit: Yes Status: Acute Pt was seen and examined, my medical decision was reviewed with the Resident Physician, I agree with the documented findings, disposition and treatment plas as described except to the extent set forth below Per his staff patient noted to have some baseline problem with her short-term memory before this admission but now with these acute distress of less and changes in the environment noted to be have more confusion overall she is a stable no sign of any meningeal irritation or infection. Suggest to continue current treatments he can be evaluated the patient as an outpatient when she is more stable and then decide about restarting some medication for her memory. Estella Espino MD Objective - Constitutional Vitals: Temp Pulse Resp BP Pulse Ox 98.0 F 57 16 97/59 97 05/01/18 11:05 05/01/18 11:05 05/01/18 11:05 05/01/18 11:05 05/01/18 11:05 Results - Laboratory Findings CBC and BMP: 05/01/18 05:58 05/01/18 05:58 Abnormal lab findings: Abnormal lab results RBC 3.77 M/mcL (3.82-4.97) L 05/01/18 05:58 Hgb 11.1 g/dL (11.5-15.4) L D 05/01/18 05:58 Hct 34.8 % (35.3-44.9) L 05/01/18 05:58 BUN 29 mg/dL (8-23) H 05/01/18 05:58 Creatinine 1.22 mg/dL (0.60-1.20) H 05/01/18 05:58 Est GFR ( Amer) 52 (> 60) L 05/01/18 05:58 Est GFR (Non-Af Amer) 43 (> 60) L 05/01/18 05:58 Calcium 8.5 mg/dL (8.6-10.3) L 05/01/18 05:58 Total Bilirubin 2.3 mg/dL (0.3-1.0) H 04/29/18 14:44 Direct Bilirubin 0.8 mg/dL (0.0-0.2) H 04/29/18 14:44 Indirect Bilirubin 1.5 mg/dL (0.0-1.2) H 04/29/18 14:44 Globulin 3.6 g/dL (2.4-3.5) H 04/29/18 14:44 Albumin/Globulin Ratio 1.0 (1.1-2.2) L 04/29/18 14:44 Folate > 22.3 ng/mL (3.0-16.0) H 05/01/18 05:58 Urine Clarity Cloudy (Clear) A 05/01/18 13:00 Ur Specific [place] 1.026 (1.010-1.025) H 05/01/18 13:00 Urine Protein 30 mg/dL (Neg-Trace) H 05/01/18 13:00 Urine Ketones Trace mg/dL (Negative) H 05/01/18 13:00 Ur Leukocyte Esterase Large (Negative) H 05/01/18 13:00
[2018-05-01] MEDS ORDERED: *HR* Heparin 5,000 UNIT/ML VIAL SQ SCH (11:33)
[2018-05-01 13:16] LABS: Bilirubin,Urine Negative (Negative); Blood,Urine Negative (Negative); Clarity,Urine Cloudy (Clear); Color,Urine Dark Yellow (Yellow); Glucose,Urine (UA) Normal (Normal); Ketones,Urine Trace mg/dL (Negative); Leukocyte Esterase,Urine Large (Negative); Nitrite,Urine Negative (Negative); Protein,Urine 30 mg/dL (Neg-Trace); Specific Gravity,Urine 1.026 (1.010-1.025); Urobilinogen,Urine Normal (Normal)
[2018-05-01 13:18] LABS: Bacteria,Urine None Seen per hpf (None-Few); RBC,Urine 0-3 per hpf (0-3); Squamous Epithelial Cell,Urine Many per lpf (None-Few); WBC,Urine 50-100 per hpf (0-3)
[2018-05-01] MEDS ORDERED: Cyanocobalamin (B-12) 1,000 MCG/ML VIAL IM ONE (13:34)
[2018-05-01 13:39] LABS: Transitional Epi Cells,Urine Few per hpf (None-Few)
[2018-05-01 13:40] LABS: Granular Casts,Urine Few per lpf (None Seen); Hyaline Casts,Urine Few per lpf (None-Few); Mucus,Urine Many (Few); Renal Epithelial Cells,Urine Few per hpf (None-Few); Waxy Casts,Urine Few per lpf (None Seen); White Blood Cell Casts,Urine Few per lpf (None Seen)
[2018-05-01 13:41] LABS: Amorphous Sediment,Urine Few (Few)
[2018-05-01] MEDS: Pantoprazole 40 MG VIAL IVP SCH (16:54)
[2018-05-02] MEDS: 0.9 % Sodium Chloride 1,000 ML IVC SCH
[2018-05-02] MEDS: Ipratropium/Albuterol Neb 3 ML IH SCH ×4 (04:26→22:29)
[2018-05-02 05:38] LABS: Basophils % 0.3 %; Eosinophils # 0.2 K/mcL (0.0-0.6); Eosinophils % 2.4 %; Hematocrit 33.3 % (35.3-44.9); Hemoglobin 10.9 g/dL (11.5-15.4); Immature Granulocytes % 0.3 % (0-4); Lymphocytes # 1.1 K/mcL (0.6-4.6); Lymphocytes % 16.5 %; Mean Corpuscular HGB Conc 32.7 g/dL (31.6-35.5); Mean Corpuscular Hemoglobin 30.5 pg (28.0-33.3); Mean Corpuscular Volume 93.3 fL (83.0-100.0); Monocytes # 0.6 K/mcL (0.0-1.3); Monocytes % 9.7 %; Neutrophils # 4.5 K/mcL (1.6-8.9); Platelet Count 162 K/mcL (140-400); Red Blood Count 3.57 M/mcL (3.82-4.97); Red Cell Distribution Width 13.8 % (11.5-14.5); Segmented Neutrophils % 70.8 %
[2018-05-02] MEDS: cefOXitin 2,000 MG in Water for inj. (sterile) 20 ML 20 ML IVPB SCH ×3 (05:44→21:23)
[2018-05-02] MEDS: *HR* OxyCODONE/APAP 5/325 TABLET PO PRN (05:47)
[2018-05-02 05:48] LABS: BUN/Creatinine Ratio 29 (6-26); Blood Urea Nitrogen 28 mg/dL (8-23); Calcium 8.4 mg/dL (8.6-10.3); Carbon Dioxide 26 mEq/L (23-29); Chloride 106 mEq/L (98-107); Glucose 100 mg/dL (70-105); Osmolality,Calculated 290 (280-300); Potassium 3.7 mEq/L (3.5-5.1); Sodium 137 mEq/L (136-145); eGFR For African Americans > 60 (> 60); eGFR For Non-African Americans 56 (> 60)
[2018-05-02] MEDS: Pantoprazole 40 MG VIAL IVP SCH ×2 (05:59→19:00)
[2018-05-02] MEDS: *HR* Heparin 5,000 UNIT/ML VIAL SQ SCH ×2 (06:00→19:00)
--- NOTE | 2018-05-02 09:48 | General Surgery Progress Note ---
<Trice Maciel Aliyah - Last Filed: 05/02/18 10:21> Date of Encounter: 05/02/18 Time of Encounter: 09:46 - Assessment and Plan (1) Acute cholecystitis Status: Acute Date of procedure: 04/29/18 Pre-op diagnosis: Acute cholecystitis Post-op diagnosis: same Procedure: Laparoscopic cholecystectomy, cholangiogram +30% (morbid obesity and acute cholecystitis); estimated BL 100 ml POD#3 as above. Assessment is as expected. She is febrile this am (99.6). BC ordered 05/01 and pending. WBC is normal. on cefoxitin. Plan: Regular diet. Stop IVF continue home medications discomfort management and supportive care activity per PT and OT UA which was completed and contaminated, but could be consistent with UTI. Will order a straight cath for urine culture to prevent contamination; otherwise cefoxitin is adequate coverage and pt's WBC has improved Repeat am labs D/c Planning pending placement, afebrile, and clinical course; Reviewed with CNM. Referral cannot be placed until PT/OT have evaluated. (2) Disorientation Status: Acute Likely acute delirium on chronic dementia, unsure of baseline mental status neurology is following, appreciate recommendations (noted treatment for vitamin D deficiency) and recommendation of UA which was completed and contaminated, but could be consistent with UTI. Will order a straight cath for urine culture to prevent contamination; otherwise cefoxitin is adequate coverage and pt's WBC has improved Limit narcotics (3) Hypertension Status: Acute Continue current medications Qualifiers: Hypertension type: essential hypertension Qualified Code(s): I10 - Essential (primary) hypertension (4) Depression Status: Acute Continue current medications Qualifiers: Depression Type: unspecified Qualified Code(s): F32.9 - Major depressive disorder, single episode, unspecified (5) COPD (chronic obstructive pulmonary disease) Status: Acute Continue current medications incentive spirometry/aggressive pulmonary toileting Qualifiers: COPD type: unspecified COPD Qualified Code(s): J44.9 - Chronic obstructive pulmonary disease, unspecified (6) DVT prophylaxis Status: Acute Heparin sub Q BID EP CDs while in bed ambulate per PT and OT Subjective Patient reports: no new complaints (difficulty answering quesitons), fever Narrative: , cousin, and mother at bedside. Objective Vital Signs - Last 8 Hours Temp Pulse Resp BP Pulse Ox 05/02/18 06:24 99.6 F 95 18 103/51 95 05/02/18 04:27 16 93 05/02/18 03:47 98.8 F 91 18 105/57 94 Intake and Output 05/01/18 05/02/18 05/02/18 23:59 07:59 15:59 Intake Total 1140 / 1140 80 / 80 Output Total 600 / 600 300 / 300 Balance 540 / 540 -220 / -220 Intake: IV Fluids 1020 / 1020 0.9 % Sodium Chloride 1,000 ML 1000 / 1000 @ 75 mls/hr IVC .[id number] [facility] Rx #:[id number] Mefoxin 2,000 MG In Water for inj. (sterile) 20 ML @ 300 mls/ hr IVPB Q8H [facility] Rx#:[id number] Oral 120 / 120 60 / 60 Output: Urine 600 / 600 300 / 300 Other: Meal Dinner Percent of Meal Consumed 50% # Bowel Movements 0 Weight 136.2 kg Patient Weight 05/02/18 23:59 Weight 136.2 kg - General physical appearance no distress, other - ENT atraumatic, normocephalic - Neck Neck exam: no masses, trachea midline - Respiratory other (Decreased and course) - Cardiovascular Cardiovascular exam: Present: RRR - Abdomen Abdomen: Present: bowel sounds present, soft, tender (expected postoperative tenderness) - Integumentary no abnormal pigmentation - Neurologic normal sensation - Musculoskeletal normal posture - Psychiatric oriented to person, oriented to place (Also able to correctly identify visitors at bedside.) - Labs 05/02/18 05:06 05/02/18 05:06 Diabetes panel 05/02/18 Range/Units 05:06 Sodium 137 (136-145) mEq/L Potassium 3.7 (3.5-5.1) mEq/L Chloride 106 (98-107) mEq/L Carbon Dioxide 26 (23-29) mEq/L BUN 28 H (8-23) mg/dL Creatinine 0.97 (0.60-1.20) mg/dL Glucose 100 (70-105) mg/dL Calcium 8.4 L (8.6-10.3) mg/dL Calcium panel 05/02/18 Range/Units 05:06 Calcium 8.4 L (8.6-10.3) mg/dL Pituitary panel 05/02/18 Range/Units 05:06 Sodium 137 (136-145) mEq/L Potassium 3.7 (3.5-5.1) mEq/L Chloride 106 (98-107) mEq/L Carbon Dioxide 26 (23-29) mEq/L BUN 28 H (8-23) mg/dL Creatinine 0.97 (0.60-1.20) mg/dL Glucose 100 (70-105) mg/dL Calcium 8.4 L (8.6-10.3) mg/dL Adrenal panel 05/02/18 Range/Units 05:06 Sodium 137 (136-145) mEq/L Potassium 3.7 (3.5-5.1) mEq/L Chloride 106 (98-107) mEq/L Carbon Dioxide 26 (23-29) mEq/L BUN 28 H (8-23) mg/dL Creatinine 0.97 (0.60-1.20) mg/dL Glucose 100 (70-105) mg/dL Calcium 8.4 L (8.6-10.3) mg/dL - VTE Documentation of Mechanical Device: Intermittent pneumatic compression device Consult Discharge Plan - Plan Additional Instructions: General Surgical Discharge Instructions 1. No pushing, pulling, or lifting greater than 15 lbs for 2 weeks. 2. You may shower beginning today, but no tub baths, soaking, or swimming for 2 weeks. 3. You may resume driving when you are off narcotics and are safe to react in a car. 4. Take ibuprofen every 8 hours for discomfort. If this does not relieve discomfort, you may take the as needed Percocet. Take narcotics as directed. Do not take more narcotics then directed and do not share your narcotics with any other person. Do not drink alcohol while on narcotics. 5. Take stool softeners (Colace) or a water based laxative (Miralax) while taking narcotics. You may hold for loose stools. 6. Report any fevers greater than 100.5F, increase abdominal discomfort, drainage that looks like pus, increased redness or pain at the surgical site, or any vomiting. 7. Report any pain in the calves, shortness of breath, or rapid heartbeat. 8. Follow-up in the office as directed. Also follow-up with Neurology in the next 2-4 weeks. 9. Take your antibiotics as prescribed. Referrals: Marii Longoria CNP [Advanced Practice Nurse] - 05/09/18 1:00 pm Rachel Toscano CNP [Advanced Practice Nurse] - 05/13/18 3:00 pm Estella Espino MD [Partnered Physician] - 05/20/18 2:15 pm Prescriptions: Ondansetron ODT [Zofran ODT] 4 mg SL Q6HR PRN #15 tab.rapdis PRN Reason: Nausea And Vomiting OxyCODONE/APAP 5/325 [Percocet 5/325 MG] 1 each PO Q6HR PRN 7 Days #28 tablet PRN Reason: severe or breakthrough pain Docusate [Colace] 100 mg PO BID #20 capsule Ibuprofen 800 mg PO TID PRN #42 tablet PRN Reason: Pain Levofloxacin [Levaquin] 500 mg PO DAILY #5 tablet metroNIDAZOLE [Flagyl] 500 mg PO BID #10 tablet <Jordan Benavides - Last Filed: 05/04/18 12:02> Date of Encounter: 05/02/18 Objective - Labs 05/03/18 05:22 05/03/18 05:22 - Attending Attestation I examined this patient and my medical decision-making was reviewed with the Resident Physician. I agree with the documented findings, disposition and treatment plan as described except to the extent set forth below. The patient is seen and evaluated on morning rounds. She remains somnolent. We will continue with supportive care and antibiotic therapy. I continue to believe that she has acute worsening of chronic dementia. Jordan Benavides MD FACS
[2018-05-02] MEDS: Losartan/HCTZ 50-12.5 TABLET PO SCH (09:52)
[2018-05-02] MEDS ORDERED: Ibuprofen 600 MG TABLET PO PRN (10:04)
[2018-05-02] MEDS ORDERED: *HR* OxyCODONE/APAP 5/325 TABLET PO PRN (10:05)
[2018-05-02] MEDS ORDERED: Acetaminophen 325 MG TABLET PO PRN (10:05)
--- NOTE | 2018-05-02 10:13 | Neurology Progress Note ---
<ChrisstuEliseo dennis - Last Filed: 05/02/18 10:22> Date of Encounter: 05/02/18 Time of Encounter: 09:30 Assessment and Plan (1) Mild cognitive impairment with memory loss Current Visit: Yes Status: Acute Patient having difficulty answering questions, patient gets distracted having difficulty with congition and orientation. Likely a combination of factors: probable Underlying cognitive impairment exacerbated by her acute medical issues. CT head showed: "No acute intracranial abnormality. Chronic white matter microangiopathic ischemic changes and age-related cerebral atrophy." TSH, Folate unremarkable B12 was low normal, B12 supplemented, no change in mentation UA contaminated by squamous cells. Consider straight cath if still concern of UTI. Patient afebrile since early yesterday morning. Recommendation: Continue to treat medically. Fever's have resolved. Neurology will sign off for now. Follow up as an outpatient for full neuropsych testing evaluation for Mild cognitive impairment. Subjective Principal diagnosis: Metabolic encephalopathy/mild cognitive impairment Interval history: No Change in patient's orientation or mental status. Patient oriented to person and place. Still not oriented to year. Patient will sit struggling with this question for a period then turn and ask what I had asked her. Patient has some baseline forgetfulness, but not to this extent per family. B12 was low normal, no improvement with B12 injection. Objective - Constitutional Vitals: Temp Pulse Resp BP Pulse Ox 99.6 F 95 18 103/51 95 05/02/18 06:24 05/02/18 06:24 05/02/18 06:24 05/02/18 06:24 05/02/18 06:24 General appearance: Present: cooperative, A&O X 2, no acute distress, obese - Head Head exam: Present: atraumatic, normal inspection - Neurological Exam Sensorimotor examination: Present: intact Motor Examination: Present: grossly full strength in all extremities, full strength in all major muscle groups Motor examination - right side: 5/5: deltoids, biceps, triceps, wrist flexion, wrist extension, director insurance, hip flexors, tibialis Anterior, quadriceps, toe extension (EHL), plantarflexion Motor examination - left side: 5/5: deltoids, biceps, triceps, wrist flexion, wrist extension, hip flexors, director insurance, quadriceps, tibialis Anterior, toe extension (EHL), plantarflexion Sensation intact: Present: intact, light touch Mental Status Examination: Present: awake, alert, oriented to person (Patient slow to respond will close eyes and appear to be thinking about question but then forget what we were talking about. Patient unable to give a guess what year it was, but does know it's April. She knows her Birthdate and full name. She knows she's at [facility]. ), oriented to place, cognitive impairment, not reliable historian Cranial nerve examination: Present: PERRL, EOMI, visual kelsey intact, sensory to face intact, no facial asymmetry is present, no dysarthria, hearing is intact symmetrically, soft palate elevates bilaterally upon phonation, flexes SCM and trapezius muscles symmetrically with full power, tongue protrudes midline, no atrophy or facial fasiculations present Cerebellar examination: Present: no dysmetria, performs finger to nose and heel to berry symmetrically without ataxia - VTE Documentation of Mechanical Device: Intermittent pneumatic compression device Results - Laboratory Findings CBC and BMP: 05/02/18 05:06 05/02/18 05:06 Abnormal lab findings: Abnormal lab results RBC 3.57 M/mcL (3.82-4.97) L 05/02/18 05:06 Hgb 10.9 g/dL (11.5-15.4) L 05/02/18 05:06 Hct 33.3 % (35.3-44.9) L 05/02/18 05:06 BUN 28 mg/dL (8-23) H 05/02/18 05:06 Est GFR (Non-Af Amer) 56 (> 60) L 05/02/18 05:06 BUN/Creatinine Ratio 29 (6-26) H 05/02/18 05:06 Calcium 8.4 mg/dL (8.6-10.3) L 05/02/18 05:06 Total Bilirubin 2.3 mg/dL (0.3-1.0) H 04/29/18 14:44 Direct Bilirubin 0.8 mg/dL (0.0-0.2) H 04/29/18 14:44 Indirect Bilirubin 1.5 mg/dL (0.0-1.2) H 04/29/18 14:44 Globulin 3.6 g/dL (2.4-3.5) H 04/29/18 14:44 Albumin/Globulin Ratio 1.0 (1.1-2.2) L 04/29/18 14:44 Folate > 22.3 ng/mL (3.0-16.0) H 05/01/18 05:58 Urine Clarity Cloudy (Clear) A 05/01/18 13:00 Ur Specific [place] 1.026 (1.010-1.025) H 05/01/18 13:00 Urine Protein 30 mg/dL (Neg-Trace) H 05/01/18 13:00 Urine Ketones Trace mg/dL (Negative) H 05/01/18 13:00 Ur Leukocyte Esterase Large (Negative) H 05/01/18 13:00 Urine Microscopic WBC 50-100 per hpf (0-3) H 05/01/18 13:00 Ur Squamous Epith Cells Many per lpf (None-Few) H 05/01/18 13:00 Granular Casts Few per lpf (None Seen) H 05/01/18 13:00 Waxy Casts Few per lpf (None Seen) H 05/01/18 13:00 WBC Casts Few per lpf (None Seen) H 05/01/18 13:00 Urine Mucus Many (Few) H 05/01/18 13:00 Ur Culture Indicated? NO. (NO) A 05/01/18 13:00 Consult Discharge Plan - Plan Referrals: Pablito Interiano MD [Primary Care Provider] - <Estella Espino I - Last Filed: 05/02/18 14:26> Date of Encounter: 05/02/18 Assessment and Plan (1) Mild cognitive impairment with memory loss Current Visit: Yes Status: Acute Pt was seen and examined, my medical decision was reviewed with the Resident Physician, I agree with the documented findings, disposition and treatment plas as described except to the extent set forth below We will reevaluate patient has an outpatient when she is back to home in the normal living conditions Estella Espino MD Objective - Constitutional Vitals: Temp Pulse Resp BP Pulse Ox 97.9 F 73 16 101/63 98 05/02/18 10:49 05/02/18 10:49 05/02/18 10:49 05/02/18 10:49 05/02/18 10:49 Results - Laboratory Findings CBC and BMP: 05/02/18 05:06 05/02/18 05:06 Abnormal lab findings: Abnormal lab results RBC 3.57 M/mcL (3.82-4.97) L 05/02/18 05:06 Hgb 10.9 g/dL (11.5-15.4) L 05/02/18 05:06 Hct 33.3 % (35.3-44.9) L 05/02/18 05:06 BUN 28 mg/dL (8-23) H 05/02/18 05:06 Est GFR (Non-Af Amer) 56 (> 60) L 05/02/18 05:06 BUN/Creatinine Ratio 29 (6-26) H 05/02/18 05:06 Calcium 8.4 mg/dL (8.6-10.3) L 05/02/18 05:06 Total Bilirubin 2.3 mg/dL (0.3-1.0) H 04/29/18 14:44 Direct Bilirubin 0.8 mg/dL (0.0-0.2) H 04/29/18 14:44 Indirect Bilirubin 1.5 mg/dL (0.0-1.2) H 04/29/18 14:44 Globulin 3.6 g/dL (2.4-3.5) H 04/29/18 14:44 Albumin/Globulin Ratio 1.0 (1.1-2.2) L 04/29/18 14:44 Folate > 22.3 ng/mL (3.0-16.0) H 05/01/18 05:58 Urine Clarity Cloudy (Clear) A 05/01/18 13:00 Ur Specific [place] 1.026 (1.010-1.025) H 05/01/18 13:00 Urine Protein 30 mg/dL (Neg-Trace) H 05/01/18 13:00 Urine Ketones Trace mg/dL (Negative) H 05/01/18 13:00 Ur Leukocyte Esterase Large (Negative) H 05/01/18 13:00 Urine Microscopic WBC 50-100 per hpf (0-3) H 05/01/18 13:00 Ur Squamous Epith Cells Many per lpf (None-Few) H 05/01/18 13:00 Granular Casts Few per lpf (None Seen) H 05/01/18 13:00 Waxy Casts Few per lpf (None Seen) H 05/01/18 13:00 WBC Casts Few per lpf (None Seen) H 05/01/18 13:00 Urine Mucus Many (Few) H 05/01/18 13:00 Ur Culture Indicated? NO. (NO) A 05/01/18 13:00
[2018-05-03] MEDS: Ipratropium/Albuterol Neb 3 ML IH SCH ×2 (03:38→11:09)
[2018-05-03] MEDS: *HR* Heparin 5,000 UNIT/ML VIAL SQ SCH (05:34)
[2018-05-03] MEDS: Pantoprazole 40 MG VIAL IVP SCH (05:34)
[2018-05-03] MEDS: cefOXitin 2,000 MG in Water for inj. (sterile) 20 ML 20 ML IVPB SCH ×2 (05:34→12:51)
[2018-05-03 06:01] LABS: Basophils % 0.3 %; Eosinophils # 0.4 K/mcL (0.0-0.6); Eosinophils % 5.6 %; Hemoglobin 10.3 g/dL (11.5-15.4); Immature Granulocytes % 0.5 % (0-4); Lymphocytes # 1.2 K/mcL (0.6-4.6); Lymphocytes % 19.4 %; Mean Corpuscular HGB Conc 32.2 g/dL (31.6-35.5); Mean Corpuscular Hemoglobin 29.5 pg (28.0-33.3); Mean Corpuscular Volume 91.7 fL (83.0-100.0); Mean Platelet Volume 9.9 fL (9.4-12.4); Monocytes # 0.6 K/mcL (0.0-1.3); Monocytes % 8.9 %; Neutrophils # 4.2 K/mcL (1.6-8.9); Platelet Count 184 K/mcL (140-400); Red Blood Count 3.49 M/mcL (3.82-4.97); Red Cell Distribution Width 13.8 % (11.5-14.5); Segmented Neutrophils % 65.3 %
[2018-05-03 06:19] LABS: BUN/Creatinine Ratio 20 (6-26); Blood Urea Nitrogen 16 mg/dL (8-23); Calcium 8.7 mg/dL (8.6-10.3); Carbon Dioxide 27 mEq/L (23-29); Chloride 102 mEq/L (98-107); Glucose 117 mg/dL (70-105); Magnesium 1.7 mg/dL (1.6-2.6); Osmolality,Calculated 284 (280-300); Phosphorous 1.9 mg/dL (2.7-4.5); Potassium 3.4 mEq/L (3.5-5.1); Sodium 136 mEq/L (136-145); eGFR For African Americans > 60 (> 60); eGFR For Non-African Americans > 60 (> 60)
[2018-05-03 06:33] VITALS: BP 105/69
[2018-05-03] MEDS ORDERED: Potassium Phosphate 44 MEQ in 0.9 % Sodium Chloride 250 ML IVPB ONE (06:49)
[2018-05-03] MEDS: Losartan/HCTZ 50-12.5 TABLET PO SCH (07:58)
--- NOTE | 2018-05-03 08:46 | Discharge Summary ---
- NOTES TO OUTPATIENT PROVIDER Notes to Outpatient Provider: s/p laparoscopic cholecystectomy. Taking levaquin and flagyl for 5 days after discharge. Pt was more disoriented during hospitalization. Neurology evaluation states this is acute on chronic. Will need continued work-up and management of her dementia Orders not resulted at time of discharge: Pending orders 05/02/18 10:50 Culture,Urine [RM] Stat Date of Encounter: 05/03/18 Time of Encounter: 06:50 - Discharge Diagnosis (1) Acute cholecystitis Priority: Primary Status: Acute (2) Disorientation Priority: Secondary Status: Acute (3) Hypertension Priority: Secondary Status: Acute Qualifiers: Hypertension type: essential hypertension Qualified Code(s): I10 - Essential (primary) hypertension (4) Depression Priority: Secondary Status: Acute Qualifiers: Depression Type: unspecified Qualified Code(s): F32.9 - Major depressive disorder, single episode, unspecified (5) COPD (chronic obstructive pulmonary disease) Priority: Secondary Status: Acute Qualifiers: COPD type: unspecified COPD Qualified Code(s): J44.9 - Chronic obstructive pulmonary disease, unspecified (6) DVT prophylaxis Priority: Secondary Status: Acute General Surgery Exam Initial Vital Signs Temp Pulse Resp BP Pulse Ox 100.6 F H 81 18 150/70 90 04/29/18 14:35 04/29/18 14:35 04/29/18 14:35 04/29/18 14:35 04/29/18 14:35 - General physical appearance well developed, well nourished, no distress - Respiratory normal expansion, normal respiratory effort wheezing: bilateral - Cardiovascular Cardiovascular exam: Present: RRR, no murmurs/rubs/gallops - Abdomen Abdomen general surgery: Present: bowel sounds present, soft, tender ( appropriate) - Incision Incision: Present: clean and dry, intact. Absent: erythema, purulent - Integumentary Integumentary general surgery: Present: warm and dry, no abnormal pigmentation - Neurologic Present: CN 2-12 grossly intact, normal coordination - Psychiatric Psychiatric general surgery: Present: A&Ox3, speech is normal - Hospital Course Hospital course: Ms. Chun is a 73 year old female admitted to the hospital with acute cholecystitis. She was taken to the OR for a laparoscopic cholecystectomy. The procedure was completed without complications. She is now pos-op day # 4. The patient did have some difficulty with memory both before and in the following days after the procedure. She was given cefoxitin and her fever and leukocytosis improved during her stay. She was evaluated by neurology for disorientation. A head CT showed no acute abnormality, chronic white matter microangiopathic ischemic changes and age-related cerebral atrophy. Neurology thinks this is an exacerbation of mild cognitive impairment due to her recent infection and surgery. She did show improvement in her memory during her hospitalization. She continued to show improvement from a surgical standpoint as well. She can be discharged home with Home Health. Will take Levaquin and Flagyl for 5 more days. - Time Spent with Patient Total time spent providing and/or coordinating discharge services: Greater than 30 minutes - Discharge Medications Prescriptions: Ondansetron ODT [Zofran ODT] 4 mg SL Q6HR PRN #15 tab.rapdis PRN Reason: Nausea And Vomiting OxyCODONE/APAP 5/325 [Percocet 5/325 MG] 1 each PO Q6HR PRN 7 Days #28 tablet PRN Reason: severe or breakthrough pain Docusate [Colace] 100 mg PO BID #20 capsule Ibuprofen 800 mg PO TID PRN #42 tablet PRN Reason: Pain Levofloxacin [Levaquin] 500 mg PO DAILY #5 tablet metroNIDAZOLE [Flagyl] 500 mg PO BID #10 tablet Home Medications: Albuterol Sulfate [Albuterol Inhaler] 2 puff IH Q4HR PRN 05/03/17 [History] Budesonide/Formoterol 160/4.5 [Symbicort 160/4.5] 2 puff IH BIDR 05/03/17 [ History] Buspirone HCl [Buspar] 15 mg PO BID 05/03/17 [History] Calcium Carbonate/Vitamin D3 [Calcium 500 mg Chewable Tablet] 1 each PO DAILY [History] Cholecalciferol (Vitamin D3) [Vitamin D3] 5,000 unit PO DAILY 05/03/17 [History] Losartan/Hydrochlorothiazide [Hyzaar 100-25 Tablet] 1 each PO DAILY 05/03/17 [ History] Omeprazole [PriLOSEC] 20 mg PO DAILY 05/03/17 [History] Sertraline [Zoloft] 100 mg PO BID 05/03/17 [History] Indomethacin 75 mg PO DAILY 04/29/18 [History] Tiotropium [Spiriva] 1 puff IH DAILY 04/29/18 [History] Docusate [Colace] 100 mg PO BID #20 capsule 05/03/18 [Rx] Ibuprofen 800 mg PO TID PRN #42 tablet 05/03/18 [Rx] Levofloxacin [Levaquin] 500 mg PO DAILY #5 tablet 05/03/18 [Rx] Ondansetron ODT [Zofran ODT] 4 mg SL Q6HR PRN #15 tab.rapdis 05/03/18 [Rx] OxyCODONE/APAP 5/325 [Percocet 5/325 MG] 1 each PO Q6HR PRN 7 Days #28 tablet [Rx] metroNIDAZOLE [Flagyl] 500 mg PO BID #10 tablet 05/03/18 [Rx] Allergies/Adverse Reactions: 3 Allergy/AdvReac Type Severity Reaction Status Date / Time No Known Allergies Allergy Verified 04/29/18 14:37 Date of admission: 05/01/18 10:45 Primary care physician: Pablito Interiano MD Discharging clinician: Joseph Ngo Anticipated date of discharge: 05/03/18 Procedures and tests throughout hospitalization: Date of procedure: 04/29/18 Pre-op diagnosis: Acute cholecystitis Post-op diagnosis: same Procedure: Laparoscopic cholecystectomy, cholangiogram +30% (morbid obesity and acute cholecystitis) Anesthesia: [facility] Surgeon: Jordan Benavides Was there an shipping assistant present: Yes Boat Officer: Marta Donovan Estimated blood loss (cc): 100 Specimen: Gallbladder and contents Labs on day of discharge: Labs from last 24 hours 05/03/18 05/03/18 05:22 05:22 WBC 6.4 RBC 3.49 L Hgb 10.3 L Hct 32.0 L MCV 91.7 MCH 29.5 MCHC 32.2 RDW 13.8 Plt Count 184 MPV 9.9 Immature Gran % 0.5 Seg Neutrophils % 65.3 Lymphocytes % 19.4 Monocytes % 8.9 Eosinophils % 5.6 Basophils % 0.3 Neutrophils # 4.2 Lymphocytes # 1.2 Monocytes # 0.6 Eosinophils # 0.4 Basophils # 0.0 Sodium 136 Potassium 3.4 L Chloride 102 Carbon Dioxide 27 BUN 16 Creatinine 0.80 Est GFR ( Amer) > 60 Est GFR (Non-Af Amer) > 60 BUN/Creatinine Ratio 20 Glucose 117 H Calculated Osmolality 284 Calcium 8.7 Phosphorus 1.9 L Magnesium 1.7 - Patient Status Disposition: Home Health Service Condition: Fair Functional capacity at discharge: independent ambulation Overall status at discharge: patient is progressing back to baseline - Discharge Instructions Follow Up With: Rachel Toscano CNP [Advanced Practice Nurse] - 05/13/18 3:00 pm Estella Espino MD [Partnered Physician] - Additional Instructions: General Surgical Discharge Instructions 1. No pushing, pulling, or lifting greater than 15 lbs for 2 weeks. 2. You may shower beginning today, but no tub baths, soaking, or swimming for 2 weeks. 3. You may resume driving when you are off narcotics and are safe to react in a car. 4. Take ibuprofen every 8 hours for discomfort. If this does not relieve discomfort, you may take the as needed Percocet. Take narcotics as directed. Do not take more narcotics then directed and do not share your narcotics with any other person. Do not drink alcohol while on narcotics. 5. Take stool softeners (Colace) or a water based laxative (Miralax) while taking narcotics. You may hold for loose stools. 6. Report any fevers greater than 100.5F, increase abdominal discomfort, drainage that looks like pus, increased redness or pain at the surgical site, or any vomiting. 7. Report any pain in the calves, shortness of breath, or rapid heartbeat. 8. Follow-up in the office as directed. Also follow-up with Neurology in the next 2-4 weeks. 9. Take your antibiotics as prescribed. - Diet and Activity Activity: increase activity as tolerated Diet: advance to your usual diet
--- NOTE | 2018-05-03 10:01 | Physician Discharge Referral ---
Home Health/Hosp Referral Info Transfer to: Home Health (s/p laparoscopic cholecystectomy. Acute on chronic mild cognitive impairment) - Diagnosis (1) Acute cholecystitis Priority: Primary Status: Acute (2) Disorientation Priority: Secondary Status: Acute (3) Hypertension Priority: Secondary Status: Acute (4) Depression Priority: Secondary Status: Acute (5) COPD (chronic obstructive pulmonary disease) Priority: Secondary Status: Acute (6) DVT prophylaxis Priority: Secondary Status: Acute - Respiratory Orders Smoking Cessation: Smoking cessation has been advised. For more information, call the [place] [employer] Quit Line at 8-728-GABH-NOW. - Diet/Nutrition Diet/Nutrition Orders: Regular - Activity Activity Orders: Ambulate - Services Needed Following services are medically necessary services: Nursing, Physical Therapy, Occupational Therapy - Transfer Medications Prescriptions: Ondansetron ODT [Zofran ODT] 4 mg SL Q6HR PRN #15 tab.rapdis PRN Reason: Nausea And Vomiting OxyCODONE/APAP 5/325 [Percocet 5/325 MG] 1 each PO Q6HR PRN 7 Days #28 tablet PRN Reason: severe or breakthrough pain Docusate [Colace] 100 mg PO BID #20 capsule Ibuprofen 800 mg PO TID PRN #42 tablet PRN Reason: Pain Levofloxacin [Levaquin] 500 mg PO DAILY #5 tablet metroNIDAZOLE [Flagyl] 500 mg PO BID #10 tablet Home Medications: Albuterol Sulfate [Albuterol Inhaler] 2 puff IH Q4HR PRN 05/03/17 [History] Budesonide/Formoterol 160/4.5 [Symbicort 160/4.5] 2 puff IH BIDR 05/03/17 [ History] Buspirone HCl [Buspar] 15 mg PO BID 05/03/17 [History] Calcium Carbonate/Vitamin D3 [Calcium 500 mg Chewable Tablet] 1 each PO DAILY [History] Cholecalciferol (Vitamin D3) [Vitamin D3] 5,000 unit PO DAILY 05/03/17 [History] Losartan/Hydrochlorothiazide [Hyzaar 100-25 Tablet] 1 each PO DAILY 05/03/17 [ History] Omeprazole [PriLOSEC] 20 mg PO DAILY 05/03/17 [History] Sertraline [Zoloft] 100 mg PO BID 05/03/17 [History] Indomethacin 75 mg PO DAILY 04/29/18 [History] Tiotropium [Spiriva] 1 puff IH DAILY 04/29/18 [History] Docusate [Colace] 100 mg PO BID #20 capsule 05/03/18 [Rx] Ibuprofen 800 mg PO TID PRN #42 tablet 05/03/18 [Rx] Levofloxacin [Levaquin] 500 mg PO DAILY #5 tablet 05/03/18 [Rx] Ondansetron ODT [Zofran ODT] 4 mg SL Q6HR PRN #15 tab.rapdis 05/03/18 [Rx] OxyCODONE/APAP 5/325 [Percocet 5/325 MG] 1 each PO Q6HR PRN 7 Days #28 tablet [Rx] metroNIDAZOLE [Flagyl] 500 mg PO BID #10 tablet 05/03/18 [Rx] Allergies/Adverse Reactions: 3 Allergy/AdvReac Type Severity Reaction Status Date / Time No Known Allergies Allergy Verified 04/29/18 14:37 Certification: Further, I certify that my clinical findings support that this patient is homebound (i.e. absences from home require considerable and taxing effort and are for medical reasons or gnosticist services or infrequently or short duration when for other reasons) because: Homebound Reason: Leaving home requires considerable and taxing effort due to condition Attestation: My signature below is to certify that this patient is under my care and that I, or nurse practitioner, or a physician's care team assistant working with me, has a face-to -face encounter with this patient.
== END 2018-05-03 15:12 | disposition home health service (06) | DRG 417 ==
LOC: EMEROO 14:33 → 3ANU 14:33
PROVIDERS: ADMIT Surgery; ATTEND Surgery

== ENCOUNTER 2019-12-04 19:50 | Inpatient (IN) ==
[2019-12-04] MEDS ORDERED: Ipratropium/Albuterol Neb 3 ML IH ONE (20:26)
[2019-12-04] MEDS ORDERED: Azithromycin 500 MG in 0.9 % Sodium Chloride 250 ML IVPB ONE (20:43)
[2019-12-04] MEDS ORDERED: cefTRIAXone 1,000 MG in Water for inj. (sterile) 10 ML IVP ONE (20:43)
[2019-12-04 20:54] LABS: Basophils % 0.4 %; Eosinophils # 0.1 K/mcL (0.0-0.6); Eosinophils % 0.9 %; Hematocrit 37.8 % (35.3-44.9); Hemoglobin 12.8 g/dL (11.5-15.4); Immature Granulocytes % 0.3 % (0-4); Lymphocytes # 1.1 K/mcL (0.6-4.6); Lymphocytes % 13.4 %; Mean Corpuscular HGB Conc 33.9 g/dL (31.6-35.5); Mean Corpuscular Volume 88.7 fL (83.0-100.0); Mean Platelet Volume 10.3 fL (9.4-12.4); Monocytes # 0.8 K/mcL (0.0-1.3); Monocytes % 10.3 %; Neutrophils # 5.9 K/mcL (1.6-8.9); Platelet Count 176 K/mcL (140-400); Red Blood Count 4.26 M/mcL (3.82-4.97); Red Cell Distribution Width 13.3 % (11.5-14.5); Segmented Neutrophils % 74.7 %; White Blood Count 7.9 K/mcL (4.3-11.1)
[2019-12-04 21:13] LABS: BUN/Creatinine Ratio 23 (6-26); Blood Urea Nitrogen 24 mg/dL (8-23); Calcium 8.9 mg/dL (8.6-10.3); Carbon Dioxide 25 mEq/L (23-29); Chloride 100 mEq/L (98-107); Glucose 109 mg/dL (70-105); Magnesium 1.8 mg/dL (1.6-2.6); Osmolality,Calculated 289 (280-300); Potassium 3.6 mEq/L (3.5-5.1); Sodium 137 mEq/L (136-145); eGFR For African Americans > 60 (> 60); eGFR For Non-African Americans 51 (> 60)
[2019-12-04] MEDS ORDERED: Ondansetron ODT 4 MG TAB.RAPDIS SL PRN (22:31)
[2019-12-04] MEDS ORDERED: MethylPREDNISolone 40 MG/ML VIAL IVP ONE (22:31)
[2019-12-04] MEDS ORDERED: Naloxone 0.4 MG/ML INJ IVP PRN (22:31)
[2019-12-04] MEDS ORDERED: Albuterol 2.5 MG/3 ML NEBULIZER IH PRN (22:31)
[2019-12-04 22:42] LABS: VBG HCO3 24 mEq/L (21-27); VBG PCO2 36 mmHg (41-51); VBG PH 7.42 pH Units (7.32-7.42); VBG PO2 70 mmHg (25-50)
[2019-12-04] MEDS ORDERED: *HR* Heparin 5,000 UNIT/ML VIAL IVP PRN ×2 (23:47)
[2019-12-04] MEDS ORDERED: Aspirin Enteric Coated 325 MG Tablet PO ONE (23:49)
[2019-12-05] MEDS: Furosemide 40 MG/4 ML VIAL IVP SCH ×3 (00:24→16:57)
[2019-12-05] MEDS: Cholecalciferol (D-3) 1,000 UNIT (25MCG) TABLET PO SCH ×3 (00:24→21:12)
[2019-12-05 00:33] LABS: Hematocrit 37.9 % (35.3-44.9); Hemoglobin 12.4 g/dL (11.5-15.4); Mean Corpuscular HGB Conc 32.7 g/dL (31.6-35.5); Mean Corpuscular Hemoglobin 30.3 pg (28.0-33.3); Mean Corpuscular Volume 92.7 fL (83.0-100.0); Mean Platelet Volume 10.4 fL (9.4-12.4); Platelet Count 175 K/mcL (140-400); Red Blood Count 4.09 M/mcL (3.82-4.97); Red Cell Distribution Width 13.2 % (11.5-14.5); White Blood Count 7.2 K/mcL (4.3-11.1)
[2019-12-05] MEDS: Heparin 25,000 UNIT/250 ML D5W 25,000 UNIT/250 ML IV.SOLN IVC SCH ×2 (00:40→21:24)
[2019-12-05 00:45] LABS: Bilirubin,Urine Small (Negative); Blood,Urine Trace (Negative); Clarity,Urine Cloudy (Clear); Color,Urine Dark Yellow (Yellow); Glucose,Urine (UA) Normal (Normal); Ketones,Urine Trace mg/dL (Negative); Leukocyte Esterase,Urine Large (Negative); Nitrite,Urine Positive (Negative); PH,Urine 5.5 pH Units (5.0-8.0); Protein,Urine 30 mg/dL (Neg-Trace); Specific Gravity,Urine 1.024 (1.010-1.025); Urobilinogen,Urine Normal (Normal)
[2019-12-05 00:46] LABS: Bacteria,Urine None Seen per hpf (None-Few); Hyaline Casts,Urine Moderate per lpf (None-Few); RBC,Urine 0-3 per hpf (0-3); Squamous Epithelial Cell,Urine Few per lpf (None-Few); WBC,Urine TNTC per hpf (0-3)
[2019-12-05 01:34] LABS: Adenovirus Not Detected (Not Detect); Bordetella Pertussis Not Detected (Not Detect); Chlamydophila pneumoniae Not Detected (Not Detect); Coronavirus 229E Not Detected (Not Detect); Coronavirus HKU1 Not Detected (Not Detect); Coronavirus NL63 Not Detected (Not Detect); Coronavirus OC43 Not Detected (Not Detect); Human Metapneumovirus Not Detected (Not Detect); Human Rhinovirus/Enterovirus Not Detected (Not Detect); Influenza A Subtype 2009 H1 Not Detected (Not Detect); Influenza B Not Detected (Not Detect); Mycoplasma pneumoniae Not Detected (Not Detect); Parainfluenza Virus 1 Not Detected (Not Detect); Parainfluenza Virus 2 Not Detected (Not Detect); Parainfluenza Virus 3 Not Detected (Not Detect); Parainfluenza Virus 4 Not Detected (Not Detect); Respiratory Syncytial Virus Not Detected (Not Detect)
[2019-12-05] MEDS: Ipratropium/Albuterol Neb 3 ML IH SCH ×5 (02:43→21:18)
[2019-12-05 03:47] LABS: INR 1.3; Prothrombin Time 15.2 Seconds (9.4-12.1)
[2019-12-05 04:08] LABS: Troponin I 0.08 ng/mL (< 0.04)
[2019-12-05 04:12] LABS: Thyroid Stimulating Hormone 1.446 mcIU/mL (0.340-5.600)
[2019-12-05 04:19] LABS: Albumin 3.7 g/dL (3.5-5.7); Albumin/Globulin Ratio 0.9 (1.1-2.2); Bilirubin,Total 1.6 mg/dL (0.3-1.0); Calcium 9.5 mg/dL (8.6-10.3); Chol/HDL Ratio 4.2 (0-4.9); Globulin 4.3 g/dL (2.4-3.5); Potassium 3.8 mEq/L (3.5-5.1)
[2019-12-05] MEDS ORDERED: *HR* Heparin 5,000 UNIT/ML VIAL SQ SCH (06:00)
[2019-12-05 06:26] LABS: Basophils % 0.2 %; Hematocrit 38.2 % (35.3-44.9); Hemoglobin 12.9 g/dL (11.5-15.4); Immature Granulocytes % 0.4 % (0-4); Lymphocytes # 0.4 K/mcL (0.6-4.6); Mean Corpuscular HGB Conc 33.8 g/dL (31.6-35.5); Mean Corpuscular Volume 88.8 fL (83.0-100.0); Mean Platelet Volume 10.2 fL (9.4-12.4); Monocytes # 0.2 K/mcL (0.0-1.3); Monocytes % 2.9 %; Neutrophils # 4.9 K/mcL (1.6-8.9); Platelet Count 168 K/mcL (140-400); Red Cell Distribution Width 13.3 % (11.5-14.5); Segmented Neutrophils % 88.5 %; White Blood Count 5.5 K/mcL (4.3-11.1)
[2019-12-05] MEDS ORDERED: Perflutren Lipid Microsphere 1.3 ML in 0.9 % Sodium Chloride 8.7 ML IVP ONE (09:48)
[2019-12-05] MEDS: predniSONE 20 MG TABLET PO SCH (10:59)
[2019-12-05] MEDS: cefTRIAXone 1,000 MG in Water for inj. (sterile) 10 ML IVP SCH (10:59)
[2019-12-05 18:02] LABS: Estimated Average Glucose 111 mg/dl
[2019-12-05] MEDS: Budesonide/Formoterol 80/4.5 1 PUFF INH IH SCH (21:18)
[2019-12-06] MEDS: Ipratropium/Albuterol Neb 3 ML IH SCH ×4 (04:16→19:31)
[2019-12-06 08:12] LABS: Phosphorous 3.8 mg/dL (2.7-4.5); Potassium 3.4 mEq/L (3.5-5.1)
[2019-12-06] MEDS: predniSONE 20 MG TABLET PO SCH (08:19)
[2019-12-06] MEDS: Aspirin 81 MG TAB.CHEW PO SCH (08:19)
[2019-12-06] MEDS: Losartan/HCTZ 50-12.5 TABLET PO SCH (08:19)
[2019-12-06] MEDS: cefTRIAXone 1,000 MG in Water for inj. (sterile) 10 ML IVP SCH (08:20)
[2019-12-06] MEDS: Cholecalciferol (D-3) 1,000 UNIT (25MCG) TABLET PO SCH ×2 (08:20→21:15)
[2019-12-06] MEDS: Furosemide 40 MG/4 ML VIAL IVP SCH ×2 (08:20→18:20)
[2019-12-06] MEDS: *HR* Heparin 5,000 UNIT/ML VIAL SQ SCH (18:20)
[2019-12-06] MEDS: Budesonide/Formoterol 80/4.5 1 PUFF INH IH SCH (19:31)
[2019-12-07] MEDS: Ipratropium/Albuterol Neb 3 ML IH SCH ×4 (03:31→22:21)
[2019-12-07] MEDS: *HR* Heparin 5,000 UNIT/ML VIAL SQ SCH ×2 (05:41→16:59)
[2019-12-07 05:50] LABS: Calcium 9.3 mg/dL (8.6-10.3); Potassium 3.4 mEq/L (3.5-5.1)
[2019-12-07] MEDS: Metoprolol XL (24 HR) Succ 25 MG TAB.ER.24H PO SCH (07:56)
[2019-12-07] MEDS: predniSONE 20 MG TABLET PO SCH (07:57)
[2019-12-07] MEDS: Cholecalciferol (D-3) 1,000 UNIT (25MCG) TABLET PO SCH ×2 (07:57→20:49)
[2019-12-07] MEDS: Aspirin 81 MG TAB.CHEW PO SCH (07:57)
[2019-12-07] MEDS: Losartan/HCTZ 50-12.5 TABLET PO SCH (07:57)
[2019-12-07] MEDS: Furosemide 40 MG/4 ML VIAL IVP SCH ×2 (07:58→16:59)
[2019-12-07] MEDS: cefTRIAXone 1,000 MG in Water for inj. (sterile) 10 ML IVP SCH (07:58)
[2019-12-07] MEDS: Budesonide/Formoterol 80/4.5 1 PUFF INH IH SCH (22:22)
[2019-12-08] MEDS: Ipratropium/Albuterol Neb 3 ML IH SCH ×4 (03:56→21:24)
[2019-12-08 04:58] LABS: Hematocrit 39.9 % (35.3-44.9); Mean Corpuscular HGB Conc 32.6 g/dL (31.6-35.5); Mean Corpuscular Hemoglobin 30.4 pg (28.0-33.3); Mean Corpuscular Volume 93.2 fL (83.0-100.0); Mean Platelet Volume 10.3 fL (9.4-12.4); Platelet Count 230 K/mcL (140-400); Red Blood Count 4.28 M/mcL (3.82-4.97); Red Cell Distribution Width 13.3 % (11.5-14.5); White Blood Count 7.7 K/mcL (4.3-11.1)
[2019-12-08 05:14] LABS: Calcium 9.7 mg/dL (8.6-10.3); Potassium 4.1 mEq/L (3.5-5.1)
[2019-12-08] MEDS: *HR* Heparin 5,000 UNIT/ML VIAL SQ SCH ×2 (05:52→17:14)
[2019-12-08] MEDS: Metoprolol XL (24 HR) Succ 25 MG TAB.ER.24H PO SCH (07:44)
[2019-12-08] MEDS: Cholecalciferol (D-3) 1,000 UNIT (25MCG) TABLET PO SCH ×2 (11:46→22:10)
[2019-12-08] MEDS: Aspirin 81 MG TAB.CHEW PO SCH (11:46)
[2019-12-08] MEDS: Furosemide 20 MG TABLET PO SCH ×2 (11:46→17:13)
[2019-12-08] MEDS: Losartan/HCTZ 50-12.5 TABLET PO SCH (11:47)
[2019-12-08] MEDS: Budesonide/Formoterol 80/4.5 1 PUFF INH IH SCH (21:24)
[2019-12-09] MEDS: Ipratropium/Albuterol Neb 3 ML IH SCH ×4 (04:10→21:48)
[2019-12-09 04:41] LABS: Calcium 9.4 mg/dL (8.6-10.3)
[2019-12-09] MEDS: *HR* Heparin 5,000 UNIT/ML VIAL SQ SCH ×2 (05:55→16:35)
[2019-12-09] MEDS: Cholecalciferol (D-3) 1,000 UNIT (25MCG) TABLET PO SCH ×2 (09:30→21:45)
[2019-12-09] MEDS: Metoprolol XL (24 HR) Succ 25 MG TAB.ER.24H PO SCH (09:30)
[2019-12-09] MEDS: Aspirin 81 MG TAB.CHEW PO SCH (09:31)
[2019-12-09] MEDS: Furosemide 20 MG TABLET PO SCH (09:39)
[2019-12-09] MEDS ORDERED: levoFLOXacin 750 MG TABLET PO SCH (11:30)
[2019-12-09] MEDS: levoFLOXacin 750 MG TABLET PO SCH (12:39)
[2019-12-09] MEDS: Budesonide/Formoterol 80/4.5 1 PUFF INH IH SCH (21:48)
[2019-12-10] MEDS: Ipratropium/Albuterol Neb 3 ML IH SCH ×4 (03:26→22:31)
[2019-12-10 05:45] LABS: BUN/Creatinine Ratio 29 (6-26); Blood Urea Nitrogen 29 mg/dL (8-23); Calcium 9.3 mg/dL (8.6-10.3); Carbon Dioxide 29 mEq/L (23-29); Chloride 103 mEq/L (98-107); Glucose 96 mg/dL (70-105); Osmolality,Calculated 292 (280-300); Potassium 3.9 mEq/L (3.5-5.1); Sodium 138 mEq/L (136-145); eGFR For African Americans > 60 (> 60); eGFR For Non-African Americans 54 (> 60)
[2019-12-10] MEDS: *HR* Heparin 5,000 UNIT/ML VIAL SQ SCH ×2 (06:11→17:54)
[2019-12-10] MEDS: Cholecalciferol (D-3) 1,000 UNIT (25MCG) TABLET PO SCH ×2 (09:19→21:12)
[2019-12-10] MEDS: Aspirin 81 MG TAB.CHEW PO SCH (09:19)
[2019-12-10] MEDS: Metoprolol XL (24 HR) Succ 25 MG TAB.ER.24H PO SCH (09:19)
[2019-12-10] MEDS ORDERED: Saline Nasal Spray 44 ML BOTTLE NS PRN (09:34)
[2019-12-10] MEDS: Budesonide/Formoterol 80/4.5 1 PUFF INH IH SCH (22:31)
[2019-12-11] MEDS: Ipratropium/Albuterol Neb 3 ML IH SCH ×4 (04:20→22:05)
[2019-12-11 04:46] LABS: Hematocrit 40.5 % (35.3-44.9); Mean Corpuscular HGB Conc 32.1 g/dL (31.6-35.5); Mean Corpuscular Hemoglobin 29.4 pg (28.0-33.3); Mean Corpuscular Volume 91.6 fL (83.0-100.0); Mean Platelet Volume 10.7 fL (9.4-12.4); Platelet Count 242 K/mcL (140-400); Red Blood Count 4.42 M/mcL (3.82-4.97); Red Cell Distribution Width 13.6 % (11.5-14.5)
[2019-12-11 05:02] LABS: BUN/Creatinine Ratio 21 (6-26); Blood Urea Nitrogen 21 mg/dL (8-23); Calcium 9.2 mg/dL (8.6-10.3); Carbon Dioxide 32 mEq/L (23-29); Chloride 102 mEq/L (98-107); Glucose 104 mg/dL (70-105); Osmolality,Calculated 291 (280-300); Potassium 4.4 mEq/L (3.5-5.1); Sodium 139 mEq/L (136-145); eGFR For African Americans > 60 (> 60); eGFR For Non-African Americans 55 (> 60)
[2019-12-11] MEDS: *HR* Heparin 5,000 UNIT/ML VIAL SQ SCH ×3 (05:14→21:20)
[2019-12-11] MEDS: levoFLOXacin 750 MG TABLET PO SCH (11:26)
[2019-12-11] MEDS: Aspirin 81 MG TAB.CHEW PO SCH (11:26)
[2019-12-11] MEDS: Cholecalciferol (D-3) 1,000 UNIT (25MCG) TABLET PO SCH ×2 (11:26→21:09)
[2019-12-11] MEDS: Metoprolol XL (24 HR) Succ 25 MG TAB.ER.24H PO SCH (11:26)
[2019-12-11] MEDS ORDERED: Nitroglycerin 1,000 MCG/10 ML VIAL IV ONE (14:41)
[2019-12-11] MEDS ORDERED: *HR* Heparin 10,000 UNIT/10 ML VIAL ONE (14:41)
[2019-12-11] MEDS ORDERED: 0.9 % Sodium Chloride 1,000 ML ONE (14:41)
[2019-12-11] MEDS ORDERED: ISOVUE-370 200 ML INFUS..BTL ONE (14:41)
[2019-12-11] MEDS ORDERED: *HR* FentaNYL (PF) 100 MCG/2 ML VIAL ONE (15:15)
[2019-12-11] MEDS ORDERED: *HR* Midazolam HCl 2 MG/2 ML VIAL ONE (15:16)
[2019-12-11] MEDS: Budesonide/Formoterol 80/4.5 1 PUFF INH IH SCH (22:05)
[2019-12-12] MEDS: Ipratropium/Albuterol Neb 3 ML IH SCH ×2 (03:33→11:00)
[2019-12-12 05:14] LABS: Hematocrit 39.2 % (35.3-44.9); Hemoglobin 12.5 g/dL (11.5-15.4); Mean Corpuscular HGB Conc 31.9 g/dL (31.6-35.5); Mean Corpuscular Hemoglobin 30.4 pg (28.0-33.3); Mean Corpuscular Volume 95.4 fL (83.0-100.0); Mean Platelet Volume 10.3 fL (9.4-12.4); Platelet Count 211 K/mcL (140-400); Red Blood Count 4.11 M/mcL (3.82-4.97); Red Cell Distribution Width 13.7 % (11.5-14.5); White Blood Count 6.2 K/mcL (4.3-11.1)
[2019-12-12 05:41] LABS: BUN/Creatinine Ratio 19 (6-26); Blood Urea Nitrogen 16 mg/dL (8-23); Calcium 9.1 mg/dL (8.6-10.3); Carbon Dioxide 29 mEq/L (23-29); Chloride 103 mEq/L (98-107); Glucose 110 mg/dL (70-105); Osmolality,Calculated 290 (280-300); Potassium 4.3 mEq/L (3.5-5.1); Sodium 139 mEq/L (136-145); eGFR For African Americans > 60 (> 60); eGFR For Non-African Americans > 60 (> 60)
[2019-12-12] MEDS: *HR* Heparin 5,000 UNIT/ML VIAL SQ SCH (06:05)
[2019-12-12] MEDS ORDERED: Furosemide 20 MG TABLET PO SCH (09:00)
[2019-12-12] MEDS: Metoprolol XL (24 HR) Succ 25 MG TAB.ER.24H PO SCH (09:55)
[2019-12-12] MEDS: Aspirin 81 MG TAB.CHEW PO SCH (09:55)
[2019-12-12] MEDS: Cholecalciferol (D-3) 1,000 UNIT (25MCG) TABLET PO SCH (09:55)
[2019-12-12] MEDS ORDERED: levoFLOXacin 750 MG TABLET PO SCH (11:00)
[2019-12-12 12:32] VITALS: BP 102/65
== END 2019-12-12 13:32 | disposition home or self-care (01) | DRG 280 ==
LOC: EMEROOARM 19:50 → 3BNU 19:50 → SUATTDRO 21:45 → 3BNU 21:56
PROVIDERS: ADMIT Family Medicine; ATTEND Internal Medicine